=== PATIENT | male | born 1940 | race Caucasian/White ===

== ENCOUNTER 2022-05-09 20:50 | Inpatient (IN) ==
[2022-05-09] MEDS ORDERED: 0.9 % SODIUM CHLORIDE 1,000 ML IV ONE (21:16)
--- NOTE | 2022-05-09 21:30 | Emergency Department Note ---
Weakness HPI General Chief complaint: Weakness Stated complaint: weakness and falling Time Seen by Provider: 05/09/22 21:15 Source: patient and family Mode of arrival: EMS Limitations: no limitations History of Present Illness HPI Narrative: Narrative: Patient presents to the ED with complaints of acute on chronic weakness. Patient main complaint is as right knee hurts. He states that today he fell and his knee fell underneath him and since then he has been having difficulty ambulating. He reports pain is 6/10. He reports decreased appetite and oral intake which is chronic for him. He denies fever, chills, nausea, vomiting abdominal pain, diarrhea, dysuria, hematuria, urinary frequency. States he has been drinking much fluid either. Patient denies any other alleviating or aggravating factors. Patient has home health but not on the weekends. He states he does not normally eat over the weekend. Related Data Home Medications Medication Instructions Recorded Confirmed duloxetine 60 mg capsule,delayed 60 mg PO DAILY 11/30/16 04/15/22 release bisoprolol fumarate 5 mg tablet 2.5 mg PO DAILY 08/19/17 04/15/22 albuterol sulfate 2.5 mg inhalation .Q6-8H PRN 04/13/21 04/15/22 unknown ascorbic acid (vitamin C) 1,000 mg 1 g PO QDAY 04/13/21 04/15/22 tablet baclofen 20 mg tablet See Rx Instructions PO .COMPLEX 04/13/21 04/15/22 calcium carbonate [Calcium 600] 500 mg PO 04/13/21 04/15/22 gabapentin 300 mg capsule 600 mg PO QAM AND QPM 04/13/21 04/15/22 lamotrigine 100 mg tablet 100 mg PO BID 04/13/21 04/15/22 biydnhrgnemo-brysqnbi-jqplvy 1 tab PO QDAY 04/13/21 04/15/22 tablet (Multivitamin 50 Plus) aspirin 325 mg tablet 325 mg PO QDAY 01/20/22 04/15/22 Previous Rx's Medication Instructions Recorded Condom Catheter with Band #30 ea 04/15/22 Allergies Allergy/AdvReac Type Severity Reaction Status Date / Time animal dander Allergy Unknown unknown Verified 05/09/22 21:02 clindamycin Allergy Unknown hives Verified 05/09/22 21:02 pollen extracts Allergy Unknown unknown Verified 05/09/22 21:02 morphine AdvReac Nausea Verified 05/09/22 21:02 Review of Systems ROS ROS Narrative: Narrative: All systems ED: reviewed and negative except as stated. [facility] Narrative Patient History Narrative: Narrative: Medical/Surgical/Family History All Active Problems (Updated 05/10/22 @ 01:17 by uKrtis Dumont DO) Allergic rhinitis (Chronic) BPH (benign prostatic hyperplasia) (Chronic) Erectile dysfunction (Chronic) Nocturia (Chronic) Obstructive sleep apnea (Chronic) Peyronie disease (Chronic) Urinary frequency (Chronic) Weight loss (Chronic) Neck fracture (Chronic) Hernia of abdominal wall (Chronic) Hx of prostate biopsy (Chronic 05/29/15) History of prostate surgery (Chronic) Scalp laceration (Chronic) Urinary tract infection (Chronic) Urge incontinence (Chronic) Abrasion of face without infection (Chronic) Concussion without loss of consciousness (Chronic) Cervical radiculopathy (Chronic) History of spinal cord injury (Chronic ~06/2014) Chronic pain (Chronic) Cellulitis (Chronic) 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) Seizure disorder (Chronic) Acquired lymphedema (Chronic) Bronchitis (Chronic) Induration penis plastica (Chronic) Edema of lower extremity (Chronic) DVT (deep venous thrombosis) (Chronic) Abscess (Chronic) Paraparesis (Chronic) Insomnia (Chronic) Pressure ulcer of sacral region (Chronic) Pressure ulcer of buttock (Chronic) Idiopathic peripheral neuropathy (Chronic) GERD (gastroesophageal reflux disease) (Chronic) Diverticulitis (Chronic) Depressive disorder (Chronic) Hypertension (Chronic) Osteoarthritis (Chronic) Neurogenic bladder (Chronic) Atrial fibrillation (Chronic) Adverse reaction to drug (Chronic) Hypersomnia (Chronic) Epilepsy (Chronic) Renal mass of unknown nature (Chronic) Lumbar radiculopathy (Chronic) On anticoagulant therapy (Chronic) History of pulmonary embolism (Chronic) Acute pain of left shoulder (Acute) Acute pain of left knee (Acute) 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) Renal mass (Acute) Closed tibial fracture (Acute) Acute UTI (Acute) Medical History Abrasion of face without infection Abscess Acquired lymphedema Adverse reaction to drug Allergic rhinitis Atrial fibrillation BPH (benign prostatic hyperplasia) Bronchitis Cellulitis Cervical radiculopathy Chronic pain Clear cell carcinoma of kidney Concussion without loss of consciousness Depressive disorder Diverticulitis DJD of both shoulders DVT (deep venous thrombosis) Edema of lower extremity Epilepsy Erectile dysfunction GERD (gastroesophageal reflux disease) Hernia of abdominal wall History of pulmonary embolism History of spinal cord injury (~06/2014) incomplete cervical Hypersomnia Hypertension Idiopathic peripheral neuropathy 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 level Induration penis plastica Insomnia Lumbar radiculopathy Myelomalacia Neoplasm of uncertain behavior of trachea Neurogenic bladder Nocturia Obstructive sleep apnea On anticoagulant therapy Osteoarthritis Paraparesis Peyronie disease Pressure ulcer of buttock Pressure ulcer of sacral region Renal mass of unknown nature Scalp laceration Seizure disorder Urge incontinence Urinary frequency Urinary tract infection Weight loss Surgical History History of back surgery History of cervical spinal surgery History of discectomy History of hernia repair History of prostate surgery History of surgery 07/03 LESI #1 L2-3 w/o sed 06/28/201711/01 LESI #2 L4-5 w/o sed 10/28/1509/30 LESI #1 L4-5 w/o sed 10/01/1508/31 TF JEANTEH #2 L4-5 w/o sed 09/10/201503/31 TF JEANETH #1 Left L4-5 w/o sed 03/24/2015 History of tonsillectomy History of transurethral resection of prostate Hx of prostate biopsy (05/29/15) Neck fracture Family History Brother Depression Mother , age 94; old age No problems noted. Father , age 34; murdered Kidney stone Social History Smoking Status: Light tobacco smoker Alcohol Intake Frequency: does not drink Substance Use: marijuana Exam Narrative Narrative: Narrative: General Limitations: no limitations General appearance: Present thin and other (Chronically ill-appearing) Head Head: Present atraumatic and normocephalic ENT ENT: Present normal oropharynx and mucous membranes dry Neck Neck: Present full ROM; Absent tenderness Respiratory Respiratory: Present normal lung sounds bilaterally; Absent respiratory distress Cardiovascular Cardiovascular: Present regular rate and normal rhythm Adbominal Abdominal: Present soft; Absent tenderness Extremities Extremities: Present tenderness (Right knee) and normal capillary refill (Right knee) Neurological Neurological: Present alert and oriented X3 Psychiatric Psychiatric: Present normal affect and normal mood Skin Skin: Present warm (WNL) and intact Course Course Course Narrative: Patient was evaluated for weakness and a fall. There was no head trauma. Lab work was unremarkable with exception of leukocytosis which seems to be chronic for the patient. Renal function was intact. Patient was given some IV fluids and a box lunch which he ate some of. X-ray of the right knee obtained with image reviewed myself which is concerning for a right proximal tibial fracture, official read pending. Patient was placed in a knee immobilizer. Patient's UA revealed that he had a UTI which could be the cause of his weakness. He was given some IV Rocephin. He is a full max assist just to get to the bedside commode. At this point patient he would not be a safe discharge home as he lives at home alone with no way to help him. And we have no beds available in the hospital so we will keep patient in the ED and have case management review patient's case in the morning to help with disposition. Reevaluation(s) Reevaluation #1: Patient remains hemodynamically stable. No new complaints at this time. Time: 22:10 Vital Signs Vital signs: Vital Signs Temperature 98.1 F 05/09/22 20:55 Pulse Rate 60 05/09/22 20:55 Respiratory Rate 18 05/09/22 20:55 Blood Pressure 141/92 05/09/22 20:55 Pulse Oximetry (%) 97 05/09/22 20:55 Oxygen Delivery Method 05/09/22 20:55 Temperature 97.5 F 05/10/22 00:27 Pulse Rate 73 05/10/22 01:29 Respiratory Rate 14 05/09/22 23:33 Blood Pressure 159/88 05/09/22 23:33 Pulse Oximetry (%) 97 05/10/22 01:29 Oxygen Delivery Method 05/09/22 20:55 [facility] MDM Narrative Medical decision making narrative: Narrative: Differential Diagnosis Differential Diagnosis: Dehydration, right knee pain Medical Records Medical records reviewed: Yes I reviewed the patient's medical records. Lab Data Lab results reviewed: Yes I reviewed the patient's lab results. Result diagrams: 05/09/22 21:30 05/09/22 21:30 Labs: Lab Results 05/09/22 05/09/22 05/09/22 Range/Units 21:30 21:30 21:36 WBC 14.6 H (4.5-11.0) K/mcL RBC 4.03 L (4.63-6.08) M/mcL Hgb 13.0 L (13.7-17.5) g/dL Hct 38.6 L (40.1-51.0) % POC Hct 37.0 L (41-55) MCV 95.8 (80.0-100.0) fL MCH 32.3 (26.0-34.0) pg MCHC 33.7 (31.0-36.0) g/dL RDW 13.2 (11.5-14.5) % Plt Count 204 (140-440) K/mcL MPV 10.4 (7.4-10.4) fL Immature Gran % (Auto) 0.5 (0.0-0.5) % Neut % (Auto) 62.9 (38.0-78.0) % Lymph % (Auto) 31.4 (15.5-49.0) % Ramsey % (Auto) 3.8 (1.0-12.0) % Eos % (Auto) 1.2 (0.0-7.0) % Baso % (Auto) 0.2 (0.0-2.0) % Lymph # (Auto) 4.57 (1.50-4.80) K/mcL Ramsey # (Auto) 0.56 (0.10-0.90) K/mcL Eos # (Auto) 0.17 (0.00-0.70) K/mcL Baso # (Auto) 0.03 (0.00-0.30) K/mcL Immature Gran # 0.07 H (0.00-0.05) K/mcl Absolute Neutrophils 9.22 H (1.80-8.00) K/mcL POC Sodium 139 (133-145) Sodium 138 (133-145) mmol/L POC Potassium 4.1 (3.3-5.1) Potassium 4.2 (3.3-5.1) mmol/L POC Chloride 104 (96-108) Chloride 102 (96-108) mmol/L Carbon Dioxide 27 (22-30) mmol/L POC Total CO2 29.0 (22-30) Anion Gap 9.0 (8.0-16.0) POC BUN 23 H (6-20) BUN 20 (8-23) mg/dL Creatinine 1.0 (0.7-1.2) mg/dL POC Creatinine 1.1 (0.6-1.2) GFR Calculation 70 Glucose 102 (70-105) mg/dL POC Glucose 103 (70-105) Calcium 9.3 (8.6-10.4) mg/dL POC WB Ioniz Calcium 1.08 L (1.16-1.32) Total Bilirubin 0.6 (0.1-1.0) mg/dL AST 22 (<40) U/L ALT 16 (<40) U/L Alkaline Phosphatase 93 (39-117) U/L Total Protein 5.9 (5.9-8.4) gm/dL Albumin 3.8 (3.2-5.2) gm/dL Globulin 2.1 L (2.2-3.7) gm/dL Albumin/Globulin Ratio 1.8 (1.0-2.3) Urine Color Urine Appearance (Clear) Urine pH (5.0-9.0) Ur Specific [place] (1.000-1.035) Urine Protein (Negative) mg/dL Urine Glucose (UA) (Negative) mg/dL Urine Ketones (Negative) mg/dL Urine Occult Blood (Negative) nae/mcL Urine Nitrate (Negative) Urine Bilirubin (Negative) mg/dL Urine Urobilinogen mg/dL Ur Leukocyte Esterase (Negative) /uL Urine RBC (0-3) /hpf Urine WBC (0-4) /hpf Ur Squamous Epith Cells (0-4) /hpf Urine Bacteria (0) /hpf Urine Mucus (None) /hpf Ur Culture Indicated? 05/10/22 Range/Units 00:25 WBC (4.5-11.0) K/mcL RBC (4.63-6.08) M/mcL Hgb (13.7-17.5) g/dL Hct (40.1-51.0) % POC Hct (41-55) MCV (80.0-100.0) fL MCH (26.0-34.0) pg MCHC (31.0-36.0) g/dL RDW (11.5-14.5) % Plt Count (140-440) K/mcL MPV (7.4-10.4) fL Immature Gran % (Auto) (0.0-0.5) % Neut % (Auto) (38.0-78.0) % Lymph % (Auto) (15.5-49.0) % Ramsey % (Auto) (1.0-12.0) % Eos % (Auto) (0.0-7.0) % Baso % (Auto) (0.0-2.0) % Lymph # (Auto) (1.50-4.80) K/mcL [place] # (Auto) (0.10-0.90) K/mcL Eos # (Auto) (0.00-0.70) K/mcL Baso # (Auto) (0.00-0.30) K/mcL Immature Gran # (0.00-0.05) K/mcl Absolute Neutrophils (1.80-8.00) K/mcL POC Sodium (133-145) Sodium (133-145) mmol/L POC Potassium (3.3-5.1) Potassium (3.3-5.1) mmol/L POC Chloride (96-108) Chloride (96-108) mmol/L Carbon Dioxide (22-30) mmol/L POC Total CO2 (22-30) Anion Gap (8.0-16.0) POC BUN (6-20) BUN (8-23) mg/dL Creatinine (0.7-1.2) mg/dL POC Creatinine (0.6-1.2) GFR Calculation Glucose (70-105) mg/dL POC Glucose (70-105) Calcium (8.6-10.4) mg/dL POC WB Ioniz Calcium (1.16-1.32) Total Bilirubin (0.1-1.0) mg/dL AST (<40) U/L ALT (<40) U/L Alkaline Phosphatase (39-117) U/L Total Protein (5.9-8.4) gm/dL Albumin (3.2-5.2) gm/dL Globulin (2.2-3.7) gm/dL Albumin/Globulin Ratio (1.0-2.3) Urine Color P.yellow Urine Appearance Hazy A (Clear) Urine pH 6.0 (5.0-9.0) Ur Specific [place] 1.020 (1.000-1.035) Urine Protein Negative (Negative) mg/dL Urine Glucose (UA) Negative (Negative) mg/dL Urine Ketones 40(2+) A (Negative) mg/dL Urine Occult Blood Trace A (Negative) nae/mcL Urine Nitrate Positive A (Negative) Urine Bilirubin Negative (Negative) mg/dL Urine Urobilinogen Normal mg/dL Ur Leukocyte Esterase 1+(small) A (Negative) /uL Urine RBC 5 H (0-3) /hpf Urine WBC 67 H (0-4) /hpf Ur Squamous Epith Cells 0 (0-4) /hpf Urine Bacteria Many A (0) /hpf Urine Mucus Few A (None) /hpf Ur Culture Indicated? yes ED POC Tests ED POC Tests: NIMO - Influenza A Negative NIMO - Influenza B Negative NIMO - SARS Antigen Negative Radiology Data Radiology results reviewed: Yes I reviewed the patient's radiology results. Radiology results narrative: X-ray of the right knee obtained with images reviewed myself suspected tibial f racture Core Measures AMI Core Measures Followed: Yes Discharge Plan Patient/Caregiver Discharge Instructions Pt seen by [employer]DER/PA only: No Clinical Impression: Acute UTI Closed tibial fracture Qualifiers: Encounter type: initial encounter Tibia location: proximal Fracture morphology: unspecified fracture morphology Laterality: right Qualified Code(s): S82.101A - Unspecified fracture of upper end of right tibia, initial encounter for closed fracture Activity: non-weight bearing Instructions: Leg Fracture (ED) Activity Restrictions/Additional Instructions: Follow-up with orthopedic surgery within 2 to 3 days Seek medical attention symptoms worsen Patient Disposition: Still a Patient Condition: Good Follow up with: Lucy Giron ARNP [Primary Care Provider] - Angel Palmer MD [Physician] - 05/12/22 (Right tibial fracture) Prescriptions: No Action albuterol sulfate 2.5 mg /3 mL (0.083 %) solution for nebulization 2.5 mg inhalation .Q6-8H PRN (Reason: unknown) calcium carbonate [Calcium 600] 500 mg PO gabapentin 300 mg capsule 600 mg PO QAM AND QPM lamotrigine 100 mg tablet 100 mg PO BID Multivitamin 50 Plus Tablet 1 tab PO QDAY ascorbic acid (vitamin C) 1,000 mg tablet 1 g PO QDAY duloxetine 60 MG capsule,delayed release(DR/EC) 60 mg PO DAILY bisoprolol fumarate 5 MG tablet 2.5 mg PO DAILY baclofen 20 mg tablet See Rx Instructions PO .COMPLEX Rx Instructions: take 1 tab PO QAM; take 2 tabs PO QPM aspirin 325 mg tablet 325 mg PO QDAY (DME) Condom Catheter with Band 29mm See Rx Instructions .Route .MEDSUPPLY Qty: 30 6RF Rx Instructions: As directed
[2022-05-09 21:39] LABS: POC Calcium, Ionized 1.08 (1.16-1.32); POC Creatinine 1.1 (0.6-1.2); POC Potassium 4.1 (3.3-5.1)
[2022-05-09 22:11] LABS: Basophils # (Auto) 0.03 K/mcL (0.00-0.30); Basophils % (Auto) 0.2 % (0.0-2.0); Eosinophils # (Auto) 0.17 K/mcL (0.00-0.70); Eosinophils % (Auto) 1.2 % (0.0-7.0); Hematocrit 38.6 % (40.1-51.0); Lymphocytes # (Auto) 4.57 K/mcL (1.50-4.80); Lymphocytes % (Auto) 31.4 % (15.5-49.0); Mean Cell Volume 95.8 fL (80.0-100.0); Mean Corpuscular HGB Conc 33.7 g/dL (31.0-36.0); Mean Platelet Volume 10.4 fL (7.4-10.4); Monocytes # (Auto) 0.56 K/mcL (0.10-0.90); Monocytes % (Auto) 3.8 % (1.0-12.0); Neutrophils % (Auto) 62.9 % (38.0-78.0); Platelet Count 204 K/mcL (140-440); RBC 4.03 M/mcL (4.63-6.08); Red Cell Distribution Width 13.2 % (11.5-14.5); WBC 14.6 K/mcL (4.5-11.0)
[2022-05-09 22:36] LABS: ALT/SGPT 16 U/L (<40); AST/SGOT 22 U/L (<40); Albumin 3.8 gm/dL (3.2-5.2); Albumin/Globulin Ratio 1.8 (1.0-2.3); Alkaline Phosphatase 93 U/L (39-117); Bilirubin,Total 0.6 mg/dL (0.1-1.0); Blood Urea Nitrogen 20 mg/dL (8-23); Calcium 9.3 mg/dL (8.6-10.4); Carbon Dioxide 27 mmol/L (22-30); Chloride 102 mmol/L (96-108); Globulin 2.1 gm/dL (2.2-3.7); Glomerular Filtration Rate 70; Glucose 102 mg/dL (70-105)
[2022-05-10 01:07] LABS: Appearance,Urine Hazy (Clear); Bacteria,Urine MANY /hpf (0); Bilirubin,Urine Negative (Negative); Color,Urine P.Yellow; Culture Indicated,Urine yes; Glucose,Urine (UA) Negative (Negative); Ketones,Urine 40(2+) mg/dL (Negative); Leukocyte Esterase,Urine 1+(Small) /uL (Negative); Mucus,Urine FEW /hpf; Nitrate,Urine Positive (Negative); Protein,Urine Negative (Negative); Urine Blood Trace ery/mcL (Negative); Urine RBC 5 /hpf (0-3); Urine Squamous Epithelial Cell 0 /hpf (0-4); Urine WBC 67 /hpf (0-4); Urobilinogen,Urine Normal
[2022-05-10] MEDS ORDERED: cefTRIAXone 2 GM in DEXTROSE 5% IN WATER 50 ML IV ONE (01:16)
[2022-05-10] MEDS: 0.9 % SODIUM CHLORIDE 1,000 ML IV SCH ×2 (01:49→18:11)
--- NOTE | 2022-05-10 08:09 | XRay Report ---
HISTORY: Fell, right knee pain and weakness FINDINGS: There is an acute nondepressed obliquely oriented fracture through the medial tibial plateau. There is also a transverse component of the fracture which extends across the proximal metaphyseal region of the tibia. There is another transverse fracture through the neck of the fibula. There is underlying mild osteoarthritis with formation of small spurs. A large joint effusion is present. Calcified plaques are present in the popliteal artery. IMPRESSION: Fractured proximal tibia and fibula Interpreted and Authenticated by: Marlon Rebolledo 05/10/22
--- NOTE | 2022-05-10 08:36 | Internal Med History&Physical ---
HPI History of Present Illness Patient information: Note initiated : 05/10/22 at 8:28 am Service Date, if different from initiated Date: [] Patient: Gee Morton a 81 y/o M admitted on for weakness and falling. Chief Complaint: [] History of present illness: Mr. Morton is a 81 year old M Patient presents ED for 3 days of weakness and falling. Not eating and drinking well. Sounds like he has home health but not on the weekends. Patient fell onto his knee with increased pain. He typically uses a walker or scooter to get around. In the ED patient is found to be febrile and a UTI. Patient does complain of a fever. Patient was also found to have a proximal tibial fracture and placed in a knee immobilizer. Patient is a full max assist to commode. States he has chronic edema in the legs right is typically worse. Review of Systems: Pertinent positives as above. Denies headache//chills/nausea/vomiting/chest or abdominal pain/cough/dyspnea/diarrhea. Remaining 10 point review of system reviewed negative PFSH PFSH All Active Problems (Updated 05/10/22 @ 06:45 by Kurtis Dumont DO) Allergic rhinitis (Chronic) BPH (benign prostatic hyperplasia) (Chronic) Erectile dysfunction (Chronic) Nocturia (Chronic) Obstructive sleep apnea (Chronic) Peyronie disease (Chronic) Urinary frequency (Chronic) Weight loss (Chronic) Neck fracture (Chronic) Hernia of abdominal wall (Chronic) Hx of prostate biopsy (Chronic 05/29/15) History of prostate surgery (Chronic) Scalp laceration (Chronic) Urinary tract infection (Chronic) Urge incontinence (Chronic) Abrasion of face without infection (Chronic) Concussion without loss of consciousness (Chronic) Cervical radiculopathy (Chronic) History of spinal cord injury (Chronic ~06/2014) Chronic pain (Chronic) Cellulitis (Chronic) 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) Seizure disorder (Chronic) Acquired lymphedema (Chronic) Bronchitis (Chronic) Induration penis plastica (Chronic) Edema of lower extremity (Chronic) DVT (deep venous thrombosis) (Chronic) Abscess (Chronic) Paraparesis (Chronic) Insomnia (Chronic) Pressure ulcer of sacral region (Chronic) Pressure ulcer of buttock (Chronic) Idiopathic peripheral neuropathy (Chronic) GERD (gastroesophageal reflux disease) (Chronic) Diverticulitis (Chronic) Depressive disorder (Chronic) Hypertension (Chronic) Osteoarthritis (Chronic) Neurogenic bladder (Chronic) Atrial fibrillation (Chronic) Adverse reaction to drug (Chronic) Hypersomnia (Chronic) Epilepsy (Chronic) Renal mass of unknown nature (Chronic) Lumbar radiculopathy (Chronic) On anticoagulant therapy (Chronic) History of pulmonary embolism (Chronic) Acute pain of left shoulder (Acute) Acute pain of left knee (Acute) 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) Renal mass (Acute) Closed tibial fracture (Acute) Acute UTI (Acute) Unable to care for self (Acute) Generalized weakness (Acute) Medical History Abrasion of face without infection Abscess Acquired lymphedema Adverse reaction to drug Allergic rhinitis Atrial fibrillation BPH (benign prostatic hyperplasia) Bronchitis Cellulitis Cervical radiculopathy Chronic pain Clear cell carcinoma of kidney Concussion without loss of consciousness Depressive disorder Diverticulitis DJD of both shoulders DVT (deep venous thrombosis) Edema of lower extremity Epilepsy Erectile dysfunction GERD (gastroesophageal reflux disease) Hernia of abdominal wall History of pulmonary embolism History of spinal cord injury (~06/2014) incomplete cervical Hypersomnia Hypertension Idiopathic peripheral neuropathy 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 level Induration penis plastica Insomnia Lumbar radiculopathy Myelomalacia Neoplasm of uncertain behavior of trachea Neurogenic bladder Nocturia Obstructive sleep apnea On anticoagulant therapy Osteoarthritis Paraparesis Peyronie disease Pressure ulcer of buttock Pressure ulcer of sacral region Renal mass of unknown nature Scalp laceration Seizure disorder Urge incontinence Urinary frequency Urinary tract infection Weight loss Surgical History History of back surgery History of cervical spinal surgery History of discectomy History of hernia repair History of prostate surgery History of surgery 07/03 LESI #1 L2-3 w/o sed 06/28/201711/01 LESI #2 L4-5 w/o sed 10/28/1509/30 LESI #1 L4-5 w/o sed 10/01/1508/31 TF JEANETH #2 L4-5 w/o sed 09/10/201503/31 TF JEANETH #1 Left L4-5 w/o sed 03/24/2015 History of tonsillectomy History of transurethral resection of prostate Hx of prostate biopsy (05/29/15) Neck fracture Family History Brother Depression Mother , age 94; old age No problems noted. Father , age 34; murdered Kidney stone Social History occupational status: retired smoking status: Current some day smoker smoking status stop date: 06/19/15 alcohol intake frequency: does not drink substance use type: marijuana MEDS/ALLERGIES Home Medications and Allergies Home Medications Medication Instructions Recorded Confirmed Type duloxetine 60 mg capsule,delayed 60 mg PO DAILY 11/30/16 05/10/22 History release bisoprolol fumarate 5 mg tablet 2.5 mg PO DAILY 08/19/17 05/10/22 History albuterol sulfate 2.5 mg inhalation .Q6-8H PRN 04/13/21 05/10/22 History unknown ascorbic acid (vitamin C) 1,000 mg 1 g PO QDAY 04/13/21 05/10/22 History tablet baclofen 20 mg tablet See Rx Instructions PO .COMPLEX 04/13/21 05/10/22 History calcium carbonate [Calcium 600] 500 mg PO 04/13/21 04/15/22 History gabapentin 300 mg capsule 600 mg PO QAM AND QPM 04/13/21 05/10/22 History lamotrigine 100 mg tablet 100 mg PO BID 04/13/21 05/10/22 History trdvmnphbnzn-wzbdftim-xeijwn 1 tab PO QDAY 04/13/21 05/10/22 History tablet (Multivitamin 50 Plus) aspirin 325 mg tablet 325 mg PO QDAY 01/20/22 05/10/22 History Condom Catheter with Band #30 ea 04/15/22 05/10/22 Rx Allergies Allergy/AdvReac Type Severity Reaction Status Date / Time animal dander Allergy Unknown unknown Verified 05/09/22 21:02 clindamycin Allergy Unknown hives Verified 05/09/22 21:02 pollen extracts Allergy Unknown unknown Verified 05/09/22 21:02 morphine AdvReac Nausea Verified 05/09/22 21:02 EXAM Constitutional Vitals: Temp Pulse Resp BP Pulse Ox O2 Del Method 101.8 F H 72 14 125/47 95 05/10/22 06:55 05/10/22 08:02 05/09/22 23:33 05/10/22 08:01 05/10/22 08:02 05/09/22 20:55 Exam: General: Alert, Awake, No acute Distress Eyes/N/T: EOMI, PERRL, dry MM Head/Neck: neck supple, normocephalic atraumatic CV: RRR, No murmurs, normal s1/s2 Pulm: Clear b/l, no wheezing/rhonchi/rales Abd: soft, nontender, +BS x4 Ext: no clubbing/cyanosis, b/l LE edema R>L, Left knee swollen Neuro: Alert, no focal deficits, moves all extremities, CN 2-12 grossly intact, Skin: warm/dry DATA Data Completed and Pending Labs: Labs from last 24 hours 05/10/22 05/09/22 05/09/22 00:25 21:36 21:30 WBC 14.6 H RBC 4.03 L Hgb 13.0 L Hct 38.6 L POC Hct 37.0 L MCV 95.8 MCH 32.3 MCHC 33.7 RDW 13.2 Plt Count 204 MPV 10.4 Immature Gran % (Auto) 0.5 Neut % (Auto) 62.9 Lymph % (Auto) 31.4 Charles % (Auto) 3.8 Eos % (Auto) 1.2 Baso % (Auto) 0.2 Lymph # (Auto) 4.57 Charles # (Auto) 0.56 Eos # (Auto) 0.17 Baso # (Auto) 0.03 Immature Gran # 0.07 H Absolute Neutrophils 9.22 H POC Sodium 139 Sodium POC Potassium 4.1 Potassium POC Chloride 104 Chloride Carbon Dioxide POC Total CO2 29.0 Anion Gap POC BUN 23 H BUN Creatinine POC Creatinine 1.1 GFR Calculation Glucose POC Glucose 103 Calcium POC WB Ioniz Calcium 1.08 L Total Bilirubin AST ALT Alkaline Phosphatase Total Protein Albumin Globulin Albumin/Globulin Ratio Urine Color P.yellow Urine Appearance Hazy A Urine pH 6.0 Ur Specific [place] 1.020 Urine Protein Negative Urine Glucose (UA) Negative Urine Ketones 40(2+) A Urine Occult Blood Trace A Urine Nitrate Positive A Urine Bilirubin Negative Urine Urobilinogen Normal Ur Leukocyte Esterase 1+(small) A Urine RBC 5 H Urine WBC 67 H Ur Squamous Epith Cells 0 Urine Bacteria Many A Urine Mucus Few A Ur Culture Indicated? yes 05/09/22 21:30 WBC RBC Hgb Hct POC Hct MCV MCH MCHC RDW Plt Count MPV Immature Gran % (Auto) Neut % (Auto) Lymph % (Auto) Charles % (Auto) Eos % (Auto) Baso % (Auto) Lymph # (Auto) Charles # (Auto) Eos # (Auto) Baso # (Auto) Immature Gran # Absolute Neutrophils POC Sodium Sodium 138 POC Potassium Potassium 4.2 POC Chloride Chloride 102 Carbon Dioxide 27 POC Total CO2 Anion Gap 9.0 POC BUN BUN 20 Creatinine 1.0 POC Creatinine GFR Calculation 70 Glucose 102 POC Glucose Calcium 9.3 POC WB Ioniz Calcium Total Bilirubin 0.6 AST 22 ALT 16 Alkaline Phosphatase 93 Total Protein 5.9 Albumin 3.8 Globulin 2.1 L Albumin/Globulin Ratio 1.8 Urine Color Urine Appearance Urine pH Ur Specific [place] Urine Protein Urine Glucose (UA) Urine Ketones Urine Occult Blood Urine Nitrate Urine Bilirubin Urine Urobilinogen Ur Leukocyte Esterase Urine RBC Urine WBC Ur Squamous Epith Cells Urine Bacteria Urine Mucus Ur Culture Indicated? A/P Narrative A/P Narrative: A: *Generalized weakness/deconditioning/Falling: *UTI: *Right tibial plateau fracture and through the neck of the fibula: *HTN: *Depression: *Chronic pain & Neuropathy: *Peripheral edema: * P: -Orthopedic consult -Rocephin pending UC -PT/OT -cont home BB -TEDS, elevate leg -ppx: SCD until seen by ortho. DNR Time Spent With Patient Time: Total time spent is greater than 50% in coordination of care (as documented) at patient's floor/unit and/or counseling patient:
[2022-05-10] MEDS ORDERED: POLYETHYLENE GLYCOL 3350 17 GM PACKET PO PRN (08:49)
[2022-05-10] MEDS ORDERED: ONDANSETRON 4 MG/2 ML VIAL IV PRN (08:49)
[2022-05-10] MEDS ORDERED: SENNOSIDES 1 TABLET PO PRN (08:49)
[2022-05-10] MEDS ORDERED: ACETAMINOPHEN 325 MG TABLET PO PRN (08:49)
[2022-05-10] MEDS ORDERED: POTASSIUM CHLORIDE 20 MEQ TABLET PO PRN ×2 (08:49)
[2022-05-10] MEDS ORDERED: MAGNESIUM SULFATE 2 GM/50 ML BAG IV PRN (08:49)
[2022-05-10] MEDS ORDERED: IPRATROPIUM/ALBUTEROL 3 ML AMPUL.NEB NEB PRN (08:49)
[2022-05-10] MEDS ORDERED: POTASSIUM CHLORIDE 40 MEQ in DEXTROSE 5% IN WATER 500 ML IV PRN (08:49)
[2022-05-10] MEDS ORDERED: cefTRIAXone 1 GM in DEXTROSE 5% IN WATER 50 ML IV SCH (09:00)
[2022-05-10] MEDS ORDERED: 0.9 % SODIUM CHLORIDE 1,000 ML IV SCH (09:00)
[2022-05-10] MEDS: DOCUSATE SODIUM 100 MG CAPSULE PO SCH ×2 (12:32→20:10)
[2022-05-10] MEDS: 0.9 % SODIUM CHLORIDE 10 ML SYRINGE IV SCH ×2 (12:33→20:11)
[2022-05-10] MEDS: HYDROcodone/APAP 5/325MG TABLET PO PRN (16:14)
[2022-05-10] MEDS ORDERED: ALBUTEROL SULFATE 2.5 MG/3 ML NEBULIZER INH PRN (16:19)
[2022-05-10] MEDS ORDERED: NEOMYCIN SCH (16:30)
[2022-05-10] MEDS ORDERED: POLYMYXIN B SCH (16:30)
[2022-05-10] MEDS ORDERED: HYDROCORTISONE SCH (16:30)
[2022-05-10] MEDS ORDERED: morphine 4 MG/ML VIAL IV PRN (16:50)
[2022-05-10] MEDS ORDERED: cefTRIAXone 1 GM VIAL IV SCH (17:00)
[2022-05-10] MEDS: PIPERACILLIN SODIUM/TAZOBACTAM 3.375 GM in DEXTROSE 5% IN WATER 50 ML IV SCH (17:56)
--- NOTE | 2022-05-10 19:14 | XRay Report ---
HISTORY: Right ankle injury with pain FINDINGS: There is an acute transverse fracture of the medial malleolus. The bone is slightly rotated in a lateral direction. There is also an obliquely oriented fracture in the lateral malleolus. This bone is also mildly angulated in a lateral direction. Lateral view shows a subtle intra-articular fracture of the posterior malleolus. Patient has a large amount of soft tissue swelling around the ankle and a small joint effusion. Moderate size spur is present along the posterior border of the calcaneus. IMPRESSION: Trimalleolar fracture Interpreted and Authenticated by: Marlon Rebolledo 05/10/22
[2022-05-10] MEDS: GABAPENTIN 300 MG CAPSULE PO SCH (20:10)
[2022-05-10] MEDS: BACLOFEN 10 MG TABLET PO SCH (20:10)
[2022-05-10] MEDS ORDERED: lamoTRIgine 25 MG TABLET PO SCH (21:00)
[2022-05-10] MEDS: DULoxetine 30 MG CAPSULE PO SCH (23:38)
[2022-05-10] MEDS: lamoTRIgine 25 MG TABLET PO SCH (23:40)
[2022-05-11] MEDS: PIPERACILLIN SODIUM/TAZOBACTAM 3.375 GM in DEXTROSE 5% IN WATER 50 ML IV SCH ×4 (00:04→22:19)
[2022-05-11] MEDS: HYDROcodone/APAP 5/325MG TABLET PO PRN (04:58)
[2022-05-11] MEDS: 0.9 % SODIUM CHLORIDE 10 ML SYRINGE IV SCH ×3 (04:58→22:20)
[2022-05-11 06:23] LABS: Basophils # (Auto) 0.04 K/mcL (0.00-0.30); Basophils % (Auto) 0.4 % (0.0-2.0); Eosinophils # (Auto) 0.25 K/mcL (0.00-0.70); Eosinophils % (Auto) 2.5 % (0.0-7.0); Hematocrit 31.9 % (40.1-51.0); Hemoglobin 10.6 g/dL (13.7-17.5); Lymphocytes # (Auto) 3.56 K/mcL (1.50-4.80); Lymphocytes % (Auto) 36.1 % (15.5-49.0); Mean Cell Volume 95.5 fL (80.0-100.0); Mean Corpuscular HGB Conc 33.2 g/dL (31.0-36.0); Mean Platelet Volume 10.3 fL (7.4-10.4); Monocytes % (Auto) 6.1 % (1.0-12.0); Neutrophils % (Auto) 54.6 % (38.0-78.0); Platelet Count 147 K/mcL (140-440); RBC 3.34 M/mcL (4.63-6.08); Red Cell Distribution Width 13.2 % (11.5-14.5); WBC 9.9 K/mcL (4.5-11.0)
[2022-05-11 06:50] LABS: ALT/SGPT 12 U/L (<40); AST/SGOT 16 U/L (<40); Albumin/Globulin Ratio 1.6 (1.0-2.3); Alkaline Phosphatase 67 U/L (39-117); Bilirubin,Total 0.6 mg/dL (0.1-1.0); Blood Urea Nitrogen 13 mg/dL (8-23); Calcium 8.5 mg/dL (8.6-10.4); Carbon Dioxide 25 mmol/L (22-30); Chloride 104 mmol/L (96-108); Globulin 1.9 gm/dL (2.2-3.7); Glomerular Filtration Rate 80; Glucose 110 mg/dL (70-105)
--- NOTE | 2022-05-11 07:18 | Consultation ---
DATE OF CONSULTATION: 05/10/2022 CHIEF COMPLAINT: Right knee pain, right ankle pain. HISTORY OF PRESENT ILLNESS: This is an 81-year-old male, who presented to the emergency department with multiple complaints, which includes weakness and falling over the last few days. He has been basically nonambulatory, utilizes a wheelchair, has ____. He has done some walking at pool. He does complain of right knee pain and right ankle pain. We were consulted by the hospitalist in the emergency department for further evaluation. REVIEW OF SYSTEMS: A 10-point review of systems was reviewed and is negative except as noted. Otherwise, as above. FAMILY HISTORY: Noncontributory. MEDICAL HISTORY: Please see H and P. This is fairly extensive and noncontributory to his musculoskeletal issues. SURGICAL HISTORY: Includes a history of back surgery, history of cervical spine surgery, he has had a hernia repair, prostate surgery history, tonsillectomy, history of transurethral resection of prostate, history of prostate biopsy. SOCIAL HISTORY: The patient is retired and does admit to being a current everyday smoker. Denies any alcohol use. He does use marijuana recreationally. MEDICATIONS: Include duloxetine 60 mg p.o. daily, bisoprolol 2.5 mg p.o. daily, albuterol 2.5 mg inhaler every 6 to 8 hours p.r.n., vitamin C 1 g p.o. q. day, baclofen 20 mg daily, calcium carbonate 500 mg p.o., gabapentin 300 mg p.o. q.a.m. and q.p.m., Lamotrigine 100 mg p.o. b.i.d., multivitamin 1 tab p.o. q. day, aspirin 325 mg p.o. q. day. ALLERGIES: INCLUDE ANIMAL DANDER; CLINDAMYCIN, WHICH GIVES HIM HIVES; POLLEN EXTRACTS; MORPHINE WHICH CAUSES NAUSEA. PHYSICAL EXAMINATION: VITAL SIGNS: Blood pressure 125/48, pulse 72, respirations 14, pulse ox 95% on room air, temperature 101.8 degrees Fahrenheit. GENERAL: The patient is alert and oriented. He is currently awake without acute distress. ENT: Pupils are equal, round, and reactive to light and accommodation. ENT is otherwise unremarkable. HEAD/NECK: Head is normocephalic and atraumatic. Neck is supple without any lymphadenopathy. CARDIOVASCULAR: Heart is regular rate and rhythm without murmurs. PULMONARY: Lungs are clear to auscultation bilaterally without any wheezes, rhonchi, or rales. EXTREMITIES: Right knee inspection reveals ecchymosis or swelling diffusely over the knee without any obvious deformity. The passive and active range of motion of the knee is limited to pain. There is tenderness to palpation over the proximal tibia and fibula. Right lower extremity is neurovascularly intact. The right ankle inspection reveals diffuse pitting edema throughout the ankle. He does have tenderness to palpation over the medial and lateral malleolus without any gross deformity on inspection. Passive and active range of motion of the ankle is limited due to swelling. The right lower extremity is neurovascularly intact. DIAGNOSTIC DATA: Imaging and radiographs of the right knee reveals an oblique nondisplaced and nonangulated tibial plateau fracture, which does extend transversally over the right proximal tibia. There is also transverse fracture of the proximal aspect of the right fibula, which is also nondisplaced and nonangulated. ASSESSMENT: Right nondisplaced and nonangulated oblique medial tibial plateau fracture of the right knee and also a right proximal fibular fracture of the right knee which is nondisplaced and nonangulated and transversally oriented. Also, right ankle pain. PLAN: As radiograph show, the patient does have a nondisplaced, nonangulated right oblique medial tibial plateau fracture of the right knee and also an associated transverse proximal fibular fracture. These fractures will likely be managed nonoperatively. I would like to see the patient in the clinic within the next week. He will be nonweightbearing and will wear his knee immobilizer at all times. I will also obtain radiographs of the right ankle to rule out fractures. He does have tenderness and swelling over the ankle. The patient agrees with this plan and his questions were addressed. He will follow up with any questions or concerns. MAYCO:[email or web address] Job ID: [id number] Doc ID: [id number] Kunal Archibald PA-C
[2022-05-11] MEDS ORDERED: lamoTRIgine 100 MG TABLET PO SCH (09:00)
[2022-05-11] MEDS ORDERED: lamoTRIgine 25 MG TABLET PO SCH (09:00)
[2022-05-11] MEDS ORDERED: DULoxetine 30 MG CAPSULE PO SCH (09:00)
[2022-05-11] MEDS ORDERED: FUROSEMIDE 20 MG TABLET PO SCH (09:00)
[2022-05-11] MEDS ORDERED: ASPIRIN 325 MG ENTERIC COATED TABLET PO SCH (09:00)
[2022-05-11] MEDS ORDERED: LIDOCAINE 5% TOPICAL SCH (09:00)
[2022-05-11] MEDS: CALCIUM CARBONATE 500 MG TAB.CHEW PO SCH (09:06)
[2022-05-11] MEDS: BISOPROLOL 5 MG TABLET PO SCH (09:06)
[2022-05-11] MEDS: MULTIVIT,THER IRON,CA,FA & MIN 1 TABLET PO SCH (09:06)
[2022-05-11] MEDS: DOCUSATE SODIUM 100 MG CAPSULE PO SCH ×2 (09:06→22:17)
[2022-05-11] MEDS: VITAMIN D3 10 MCG TABLET PO SCH (09:07)
[2022-05-11] MEDS: ASCORBIC ACID 500 MG TABLET PO SCH (09:07)
[2022-05-11] MEDS: GABAPENTIN 300 MG CAPSULE PO SCH ×2 (09:07→22:18)
[2022-05-11] MEDS: BACLOFEN 10 MG TABLET PO SCH ×2 (09:07→22:18)
--- NOTE | 2022-05-11 12:21 | Internal Med Progress Note ---
SUBJECTIVE Subjective Patient information: Note initiated : 05/11/22 at 12:11 pm Service Date, if different from initiated Date: [] Patient: Gee Morton 81 y/o M admitted on 05/10/22 for weakness and falling. Chief Complaint: [] Interval history: Mr. Morton is a 81 year old M Patient presents ED for 3 days of weakness and falling. Not eating and drinking well. Sounds like he has home health but not on the weekends. Patient fell onto his knee with increased pain. He typically uses a walker or scooter to get around. In the ED patient is found to be febrile and a UTI. Patient does complain of a fever. Patient was also found to have a proximal tibial fracture and placed in a knee immobilizer. Patient is a full max assist to commode. States he has chronic edema in the legs right is typically worse. 05/11: Low-grade fever with T-max 37.9 overnight. Urine culture growing gram-negative bacillus. Blood culture no growth today. Orthopedic surgeons saw the patient and decided against surgery. Instead, recommend soft cast and 6 to 8 weeks nonweightbearing. Continue Zosyn while waiting for definitive culture results for urinary tract infections. Continue symptoms management for right leg fracture. Pending physical therapy Occupational Therapy evaluation and treatments for placement pending. Patient is complaining of mild right lower extremity pain at rest but becomes 9 out of 10 sharp constant pain whenever he tried to move. Constitutional Vitals: Vital Signs Temp Pulse Resp BP Pulse Ox O2 Del Method 37.3 C H 80 20 108/61 95 05/11/22 08:00 05/11/22 08:00 05/11/22 08:00 05/11/22 08:00 05/11/22 08:00 05/11/22 08:00 Period Temp Pulse Resp BP Sys/Salazar Pulse Ox O2 Del Method O2 Flow Rate Last 24 Hr 37.1 C-37.9 C 80-91 12-20 99-134/56-66 92-97 Room Air-Room Air Intake and Output 05/10/22 05/11/22 05/11/22 21:59 05:59 13:59 Intake Total 530 250 590 Output Total 378 300 1 Balance 152 -50 589 Weight 75.16 kg Intake & Output: Intake & Output 05/10/22 05/11/22 05/11/22 21:59 05:59 13:59 Intake Total 530 250 590 Output Total 378 300 1 Balance 152 -50 589 Weight 75.16 kg Intake: IV 50 50 Zosyn 3.375 gm In Dextrose 5% 50 50 in Water 50 ml @ 100 mls/hr IV Q8H [facility] Rx#:[id number] Oral 480 200 590 Output: Void Amount 375 300 # of times incontinent of urine 3 1 Other: Meal Lunch Breakfast Percent of Meal Consumed 100% 50% Feeding Ability Assist with Tray Set Up Assist with Tray Set Up Urine Appearance Clear Clear Urine Color Dark Yellow Dark Yellow Urine Odor Normal # Voids 1 1 General appearance: average body habitus, cooperative and no acute distress Head Head exam: Present atraumatic and normal inspection Eye Eye exam: Present normal appearance ENT ENT exam: Present mucous membranes moist, normal exam and normal external ear exam Neck Neck exam: Present normal inspection Respiratory Respiratory exam: Present normal respiratory exam Cardiovascular Cardiovascular exam: Present normal rate and rhythm GI/Abdominal GI/Abdominal exam: Present normal bowel sounds Extremities Exam Extremities exam: Absent full ROM or normal inspection Additional comments: Right lower extremity in soft cast with tenderness to palpation Back Exam Back exam: Present normal inspection Neurological Exam Neurological exam: Present alert and oriented X3 Skin Skin exam: Present intact and warm OBJ DATA Labs CBC & Chem 7: 05/11/22 05:14 05/11/22 05:14 Labs: Abnormal Lab Results 05/11/22 05/11/22 05/10/22 05:14 05:14 17:05 WBC RBC 3.34 L Hgb 10.6 L Hct 31.9 L POC Hct Immature Gran # Absolute Neutrophils POC BUN Glucose 110 H Calcium 8.5 L POC WB Ioniz Calcium Total Protein 4.9 L Albumin 3.0 L Globulin 1.9 L Procalcitonin 0.14 H Urine Appearance Urine Ketones Urine Occult Blood Urine Nitrate Ur Leukocyte Esterase Urine RBC Urine WBC Urine Bacteria Urine Mucus 05/10/22 05/09/22 05/09/22 00:25 21:36 21:30 WBC 14.6 H RBC 4.03 L Hgb 13.0 L Hct 38.6 L POC Hct 37.0 L Immature Gran # 0.07 H Absolute Neutrophils 9.22 H POC BUN 23 H Glucose Calcium POC WB Ioniz Calcium 1.08 L Total Protein Albumin Globulin Procalcitonin Urine Appearance Hazy A Urine Ketones 40(2+) A Urine Occult Blood Trace A Urine Nitrate Positive A Ur Leukocyte Esterase 1+(small) A Urine RBC 5 H Urine WBC 67 H Urine Bacteria Many A Urine Mucus Few A 05/09/22 21:30 WBC RBC Hgb Hct POC Hct Immature Gran # Absolute Neutrophils POC BUN Glucose Calcium POC WB Ioniz Calcium Total Protein Albumin Globulin 2.1 L Procalcitonin Urine Appearance Urine Ketones Urine Occult Blood Urine Nitrate Ur Leukocyte Esterase Urine RBC Urine WBC Urine Bacteria Urine Mucus Meds: Medications Acetaminophen (Acetaminophen 325 Mg Tablet) 650 mg PO Q6HP PRN; Protocol PRN Reason: Per Pain Protocol/Fever > 101 Last Admin: 05/11/22 04:58 Dose: 650 mg Hydrocodone Bitart/Acetaminophen (Hydrocodone/Apap 5/325mg Tablet) 1 tab PO Q4HP PRN PRN Reason: PAIN LEVEL 3-6 Last Admin: 05/11/22 04:58 Dose: 1 tab Albuterol Sulfate (Albuterol Sulfate 2.5 Mg/3 Ml Nebulizer) 2.5 mg INH Q6-8HP PRN PRN Reason: Shortness Of Breath Albuterol/Ipratropium (Ipratropium/Albuterol 3 Ml Ampul.Neb) 3 ml NEB Q4HP PRN PRN Reason: Shortness Of Breath Ascorbic Acid (Ascorbic Acid 500 Mg Tablet) 1,000 mg PO DAILY [facility] Last Admin: 05/11/22 09:07 Dose: 1,000 mg Baclofen (Baclofen 10 Mg Tablet) 40 mg PO BID [facility] Last Admin: 05/11/22 09:07 Dose: 40 mg Bisoprolol Fumarate (Bisoprolol 5 Mg Tablet) 2.5 mg PO DAILY [facility] Last Admin: 05/11/22 09:06 Dose: 2.5 mg Calcium Carbonate/Glycine (Calcium Carbonate 500 Mg Tab.Chew) 500 mg PO DAILY [facility] Last Admin: 05/11/22 09:06 Dose: 500 mg Docusate Sodium (Docusate Sodium 100 Mg Capsule) 100 mg PO BID [facility] Last Admin: 05/11/22 09:06 Dose: 100 mg Duloxetine HCl (Duloxetine 30 Mg Capsule) 60 mg PO [facility] Last Admin: 05/10/22 23:38 Dose: 60 mg Gabapentin (Gabapentin 300 Mg Capsule) 600 mg PO BID [facility] Last Admin: 05/11/22 09:07 Dose: 600 mg Potassium Chloride 40 meq/ (Dextrose) 520 mls @ 130 mls/hr IV UD PRN PRN Reason: Potassium < 3 Magnesium Sulfate (Magnesium Sulfate) 2 gm in 50 mls @ 50 mls/hr IV UD PRN PRN Reason: Magnesium </= 1.6 Piperacillin Sod/Tazobactam (Sod 3.375 gm/ Dextrose) 50 mls @ 100 mls/hr IV Q8H [facility]; Protocol Last Admin: 05/11/22 04:57 Dose: 100 mls/hr Iron Carb/Multivit/[place]/Folic Acid (Multivit,Ther Iron,Ca,Fa & Min 1 Tablet) 1 tab PO DAILY [facility] Last Admin: 05/11/22 09:06 Dose: 1 tab Lamotrigine (Lamotrigine 25 Mg Tablet) 125 mg PO HS [facility] Last Admin: 05/10/22 23:40 Dose: 125 mg Ondansetron HCl (Ondansetron 4 Mg/2 Ml Vial) 4 mg IV Q4HP PRN PRN Reason: Nausea And Vomiting Last Admin: 05/11/22 04:58 Dose: 4 mg Polyethylene Glycol (Polyethylene Glycol 3350 17 Gm Packet) 17 gm PO DAILYP PRN PRN Reason: Constipation Potassium Chloride (Potassium Chloride 20 Meq Tablet) 40 meq PO UD PRN PRN Reason: Potssium is 3-3.5 Potassium Chloride (Potassium Chloride 20 Meq Tablet) 40 meq PO UD PRN PRN Reason: Potassium < 3 Senna (Sennosides 1 Tablet) 2 tab PO DAILYP PRN PRN Reason: Constipation Sodium Chloride (0.9 % Sodium Chloride 10 Ml Syringe) 10 ml IV Q8 [facility] Last Admin: 05/11/22 04:58 Dose: Not Given Vitamin D (Vitamin D3 10 Mcg Tablet) 10 mcg PO DAILY [facility] Last Admin: 05/11/22 09:07 Dose: 10 mcg A/P Assessment and plan (1) Fracture of right tibia and fibula: Status: Acute (2) Acute UTI: Status: Acute (3) Essential hypertension: Status: Acute (4) Depression: Status: Acute Narrative A/P Narrative: Assessment and Plans: 1. Right tibial fibular fracture: Inpatient med surg Orthopedic surgeon recs. AGAINST surgery, instead recs. 6-8 week non weight bearing status Physical therapy Occupational therapy Narcotics PRN pain management 2. Depression: Lamotrigine Duloxetine 3. UTI: Zosyn Blood culture no growth to date Urine culture gram negative bacillus 4. Essential HTN: Normotensive Continue Bisoprolol GI ppx: not currently indicated DVT ppx: Lovenox Code status: DNR Prognosis: guarded Disposition: inpatient med surg; PT OT Time Spent With Patient Time: Total time spent is greater than 50% in coordination of care (as documented) at patient's floor/unit and/or counseling patient: Total time spent with greater than 50% in coordination of care (as documented) at patient's floor/unit and/or counseling patient:: 35 - 50 minutes
[2022-05-11] MEDS: DULoxetine 30 MG CAPSULE PO SCH (22:19)
[2022-05-11] MEDS: lamoTRIgine 25 MG TABLET PO SCH (22:19)
[2022-05-12] MEDS: METHOCARBAMOL 750 MG TABLET PO PRN ×4 (00:33→22:01)
[2022-05-12] MEDS ORDERED: METHOCARBAMOL 750 MG TABLET PO ONE (00:37)
[2022-05-12] MEDS: PIPERACILLIN SODIUM/TAZOBACTAM 3.375 GM in DEXTROSE 5% IN WATER 50 ML IV SCH ×3 (05:42→22:02)
[2022-05-12] MEDS: 0.9 % SODIUM CHLORIDE 10 ML SYRINGE IV SCH ×3 (05:42→22:02)
[2022-05-12 06:14] LABS: Basophils # (Auto) 0.03 K/mcL (0.00-0.30); Basophils % (Auto) 0.3 % (0.0-2.0); Eosinophils # (Auto) 0.41 K/mcL (0.00-0.70); Eosinophils % (Auto) 3.8 % (0.0-7.0); Hematocrit 31.7 % (40.1-51.0); Hemoglobin 10.5 g/dL (13.7-17.5); Lymphocytes % (Auto) 35.6 % (15.5-49.0); Mean Cell Volume 95.8 fL (80.0-100.0); Mean Corpuscular HGB Conc 33.1 g/dL (31.0-36.0); Mean Platelet Volume 10.3 fL (7.4-10.4); Monocytes # (Auto) 0.63 K/mcL (0.10-0.90); Monocytes % (Auto) 5.9 % (1.0-12.0); Platelet Count 152 K/mcL (140-440); RBC 3.31 M/mcL (4.63-6.08); WBC 10.7 K/mcL (4.5-11.0)
[2022-05-12 06:39] LABS: ALT/SGPT 12 U/L (<40); AST/SGOT 19 U/L (<40); Albumin 2.7 gm/dL (3.2-5.2); Albumin/Globulin Ratio 1.1 (1.0-2.3); Alkaline Phosphatase 70 U/L (39-117); Bilirubin,Total 0.5 mg/dL (0.1-1.0); Blood Urea Nitrogen 10 mg/dL (8-23); Calcium 8.4 mg/dL (8.6-10.4); Carbon Dioxide 26 mmol/L (22-30); Chloride 101 mmol/L (96-108); Globulin 2.4 gm/dL (2.2-3.7); Glomerular Filtration Rate 84; Glucose 104 mg/dL (70-105)
[2022-05-12] MEDS: ENOXAPARIN 40 MG/0.4 ML SYRINGE SQ SCH (08:57)
[2022-05-12] MEDS: CALCIUM CARBONATE 500 MG TAB.CHEW PO SCH (08:58)
[2022-05-12] MEDS: HYDROcodone/APAP 5/325MG TABLET PO PRN ×3 (08:58→22:57)
[2022-05-12] MEDS: GABAPENTIN 300 MG CAPSULE PO SCH ×2 (08:58→22:01)
[2022-05-12] MEDS: BACLOFEN 10 MG TABLET PO SCH ×2 (08:58→22:02)
[2022-05-12] MEDS: ASCORBIC ACID 500 MG TABLET PO SCH (08:59)
[2022-05-12] MEDS: BISOPROLOL 5 MG TABLET PO SCH (08:59)
[2022-05-12] MEDS: MULTIVIT,THER IRON,CA,FA & MIN 1 TABLET PO SCH (08:59)
[2022-05-12] MEDS: DOCUSATE SODIUM 100 MG CAPSULE PO SCH ×2 (08:59→22:01)
[2022-05-12] MEDS: VITAMIN D3 10 MCG TABLET PO SCH (08:59)
--- NOTE | 2022-05-12 11:55 | Internal Med Progress Note ---
SUBJECTIVE Subjective Patient information: Note initiated : 05/12/22 at 11:50 am Service Date, if different from initiated Date: [] Patient: Gee Morton 81 y/o M admitted on 05/10/22 for weakness and falling. Chief Complaint: [] Interval history: Mr. Morton is a 81 year old M Patient presents ED for 3 days of weakness and falling. Not eating and drinking well. Sounds like he has home health but not on the weekends. Patient fell onto his knee with increased pain. He typically uses a walker or scooter to get around. In the ED patient is found to be febrile and a UTI. Patient does complain of a fever. Patient was also found to have a proximal tibial fracture and placed in a knee immobilizer. Patient is a full max assist to commode. States he has chronic edema in the legs right is typically worse. 05/11: Low-grade fever with T-max 37.9 overnight. Urine culture growing gram-negative bacillus. Blood culture no growth today. Orthopedic surgeons saw the patient and decided against surgery. Instead, recommend soft cast and 6 to 8 weeks nonweightbearing. Continue Zosyn while waiting for definitive culture results for urinary tract infections. Continue symptoms management for right leg fracture. Pending physical therapy Occupational Therapy evaluation and treatments for placement pending. Patient is complaining of mild right lower extremity pain at rest but becomes 9 out of 10 sharp constant pain whenever he tried to move. 05/12: Low-grade fever T-max 37.7 overnight. Urine culture growing gram-negative bacillus. Blood culture no growth today. He is complaining of fairly mild right knee pain at rest which gets exacerbated if he is try to move his right lower extremities. He also is committing of constipations with last bowel movement a few days ago. He denies any urinary symptoms such as dysuria. De nies any fever or chills. Continue soft cast in 6 to 8 weeks nonweightbearing status for his right tibial fibular fractures. Continue Zosyn while waiting for definitive culture results for urinary tract infections. Continue laxative and stool softener as needed to promote a bowel movement. Pending physical therapy Occupational Therapy evaluation and treatments for placement pending. Constitutional Vitals: Vital Signs Temp Pulse Resp BP Pulse Ox O2 Del Method 37.7 C H 81 16 130/77 95 05/12/22 06:59 05/12/22 06:59 05/12/22 06:59 05/12/22 06:59 05/12/22 06:59 05/12/22 06:59 Period Temp Pulse Resp BP Sys/Salazar Pulse Ox O2 Del Method O2 Flow Rate Last 24 Hr 36.7 C-37.7 C 66-81 16-20 104-135/55-77 94-97 Room Air-Room Air Intake and Output 05/11/22 05/12/22 05/12/22 21:59 05:59 13:59 Intake Total 790 580 50 Output Total 3 4 Balance 787 576 50 Weight 75.841 kg Intake & Output: Intake & Output 05/11/22 05/12/22 05/12/22 21:59 05:59 13:59 Intake Total 790 580 50 Output Total 3 4 Balance 787 576 50 Weight 75.841 kg Intake: IV 50 50 50 Zosyn 3.375 gm In Dextrose 5% 50 50 50 in Water 50 ml @ 100 mls/hr IV Q8H [facility] Rx#:[id number] Oral 740 530 Output: # of times incontinent of urine 3 4 Other: Meal Dinner Yogurt Percent of Meal Consumed 50% 100% Feeding Ability Independent Independent Head Head exam: Present atraumatic and normal inspection Eye Eye exam: Present normal appearance ENT ENT exam: Present mucous membranes moist, normal exam and normal external ear exam Neck Neck exam: Present normal inspection Respiratory Respiratory exam: Present normal respiratory exam Cardiovascular Cardiovascular exam: Present normal rate and rhythm GI/Abdominal GI/Abdominal exam: Present normal bowel sounds Extremities Exam Extremities exam: Absent full ROM or normal inspection Additional comments: Soft cast around right knee Back Exam Back exam: Present normal inspection Neurological Exam Neurological exam: Present alert and oriented X3 Skin Skin exam: Present intact and warm OBJ DATA Labs CBC & Chem 7: 05/12/22 05:13 05/12/22 05:13 Labs: Abnormal Lab Results 05/12/22 05/12/22 05/11/22 05:13 05:13 05:14 WBC RBC 3.31 L Hgb 10.5 L Hct 31.7 L POC Hct Immature Gran # Absolute Neutrophils POC BUN Glucose 110 H Calcium 8.4 L 8.5 L POC WB Ioniz Calcium Total Protein 5.1 L 4.9 L Albumin 2.7 L 3.0 L Globulin 1.9 L Procalcitonin Urine Appearance Urine Ketones Urine Occult Blood Urine Nitrate Ur Leukocyte Esterase Urine RBC Urine WBC Urine Bacteria Urine Mucus 05/11/22 05/10/22 05/10/22 05:14 17:05 00:25 WBC RBC 3.34 L Hgb 10.6 L Hct 31.9 L POC Hct Immature Gran # Absolute Neutrophils POC BUN Glucose Calcium POC WB Ioniz Calcium Total Protein Albumin Globulin Procalcitonin 0.14 H Urine Appearance Hazy A Urine Ketones 40(2+) A Urine Occult Blood Trace A Urine Nitrate Positive A Ur Leukocyte Esterase 1+(small) A Urine RBC 5 H Urine WBC 67 H Urine Bacteria Many A Urine Mucus Few A 05/09/22 05/09/22 05/09/22 21:36 21:30 21:30 WBC 14.6 H RBC 4.03 L Hgb 13.0 L Hct 38.6 L POC Hct 37.0 L Immature Gran # 0.07 H Absolute Neutrophils 9.22 H POC BUN 23 H Glucose Calcium POC WB Ioniz Calcium 1.08 L Total Protein Albumin Globulin 2.1 L Procalcitonin Urine Appearance Urine Ketones Urine Occult Blood Urine Nitrate Ur Leukocyte Esterase Urine RBC Urine WBC Urine Bacteria Urine Mucus Meds: Medications Acetaminophen (Acetaminophen 325 Mg Tablet) 650 mg PO Q6HP PRN; Protocol PRN Reason: Per Pain Protocol/Fever > 101 Last Admin: 05/11/22 04:58 Dose: 650 mg Hydrocodone Bitart/Acetaminophen (Hydrocodone/Apap 5/325mg Tablet) 1 tab PO Q4HP PRN PRN Reason: PAIN LEVEL 3-6 Last Admin: 05/12/22 08:58 Dose: 1 tab Albuterol Sulfate (Albuterol Sulfate 2.5 Mg/3 Ml Nebulizer) 2.5 mg INH Q6-8HP PRN PRN Reason: Shortness Of Breath Albuterol/Ipratropium (Ipratropium/Albuterol 3 Ml Ampul.Neb) 3 ml NEB Q4HP PRN PRN Reason: Shortness Of Breath Ascorbic Acid (Ascorbic Acid 500 Mg Tablet) 1,000 mg PO DAILY [facility] Last Admin: 05/12/22 08:59 Dose: 1,000 mg Baclofen (Baclofen 10 Mg Tablet) 40 mg PO BID [facility] Last Admin: 05/12/22 08:58 Dose: 40 mg Bisoprolol Fumarate (Bisoprolol 5 Mg Tablet) 2.5 mg PO DAILY [facility] Last Admin: 05/12/22 08:59 Dose: 2.5 mg Calcium Carbonate/Glycine (Calcium Carbonate 500 Mg Tab.Chew) 500 mg PO DAILY [facility] Last Admin: 05/12/22 08:58 Dose: 500 mg Docusate Sodium (Docusate Sodium 100 Mg Capsule) 100 mg PO BID [facility] Last Admin: 05/12/22 08:59 Dose: 100 mg Duloxetine HCl (Duloxetine 30 Mg Capsule) 60 mg PO [facility] Last Admin: 05/11/22 22:19 Dose: 60 mg Enoxaparin Sodium (Enoxaparin 40 Mg/0.4 Ml Syringe) 40 mg SQ DAILY [facility] Last Admin: 05/12/22 08:57 Dose: 40 mg Gabapentin (Gabapentin 300 Mg Capsule) 600 mg PO BID [facility] Last Admin: 05/12/22 08:58 Dose: 600 mg Potassium Chloride 40 meq/ (Dextrose) 520 mls @ 130 mls/hr IV UD PRN PRN Reason: Potassium < 3 Magnesium Sulfate (Magnesium Sulfate) 2 gm in 50 mls @ 50 mls/hr IV UD PRN PRN Reason: Magnesium </= 1.6 Piperacillin Sod/Tazobactam (Sod 3.375 gm/ Dextrose) 50 mls @ 100 mls/hr IV Q8H [facility]; Protocol Last Infusion: 05/12/22 06:15 Dose: Infused Iron Carb/Multivit/[place]/Folic Acid (Multivit,Ther Iron,Ca,Fa & Min 1 Tablet) 1 tab PO DAILY [facility] Last Admin: 05/12/22 08:59 Dose: 1 tab Lamotrigine (Lamotrigine 25 Mg Tablet) 125 mg PO [facility] Last Admin: 05/11/22 22:19 Dose: 125 mg Methocarbamol (Methocarbamol 750 Mg Tablet) 750 mg PO Q6HP PRN PRN Reason: Muscle Spasm Last Admin: 05/12/22 08:58 Dose: 750 mg Ondansetron HCl (Ondansetron 4 Mg/2 Ml Vial) 4 mg IV Q4HP PRN PRN Reason: Nausea And Vomiting Last Admin: 05/11/22 04:58 Dose: 4 mg Polyethylene Glycol (Polyethylene Glycol 3350 17 Gm Packet) 17 gm PO DAILYP PRN PRN Reason: Constipation Potassium Chloride (Potassium Chloride 20 Meq Tablet) 40 meq PO UD PRN PRN Reason: Potssium is 3-3.5 Potassium Chloride (Potassium Chloride 20 Meq Tablet) 40 meq PO UD PRN PRN Reason: Potassium < 3 Senna (Sennosides 1 Tablet) 2 tab PO DAILYP PRN PRN Reason: Constipation Sodium Chloride (0.9 % Sodium Chloride 10 Ml Syringe) 10 ml IV Q8 [facility] Last Admin: 05/12/22 05:42 Dose: 10 ml Vitamin D (Vitamin D3 10 Mcg Tablet) 10 mcg PO DAILY [facility] Last Admin: 05/12/22 08:59 Dose: 10 mcg A/P Assessment and plan (1) Fracture of right tibia and fibula: Status: Acute (2) Acute UTI: Status: Acute (3) Essential hypertension: Status: Acute (4) Depression: Status: Acute Narrative A/P Narrative: Assessment and Plans: 1. Right tibial fibular fracture: Inpatient med surg Orthopedic surgeon recs. AGAINST surgery, instead recs. 6-8 week non weight bearing status Physical therapy Occupational therapy Narcotics PRN pain management Baclofen and Robaxin PRN muscle spasm 2. Depression: Lamotrigine Duloxetine 3. UTI: Zosyn Blood culture no growth to date Urine culture gram negative bacillus 4. Essential HTN: Normotensive Continue Bisoprolol GI ppx: not currently indicated DVT ppx: Lovenox Code status: DNR Prognosis: guarded Disposition: inpatient med surg; PT OT Time Spent With Patient Time: Total time spent is greater than 50% in coordination of care (as documented) at patient's floor/unit and/or counseling patient: Total time spent with greater than 50% in coordination of care (as documented) at patient's floor/unit and/or counseling patient:: 35 - 50 minutes
[2022-05-12] MEDS: lamoTRIgine 25 MG TABLET PO SCH (22:01)
[2022-05-12] MEDS: DULoxetine 30 MG CAPSULE PO SCH (22:02)
[2022-05-13] MEDS: METHOCARBAMOL 750 MG TABLET PO PRN ×2 (03:46→09:32)
[2022-05-13] MEDS: HYDROcodone/APAP 5/325MG TABLET PO PRN ×2 (03:47→09:33)
[2022-05-13] MEDS: PIPERACILLIN SODIUM/TAZOBACTAM 3.375 GM in DEXTROSE 5% IN WATER 50 ML IV SCH (05:17)
[2022-05-13] MEDS: 0.9 % SODIUM CHLORIDE 10 ML SYRINGE IV SCH (05:17)
[2022-05-13 06:48] LABS: Basophils # (Auto) 0.04 K/mcL (0.00-0.30); Basophils % (Auto) 0.4 % (0.0-2.0); Eosinophils # (Auto) 0.36 K/mcL (0.00-0.70); Eosinophils % (Auto) 3.5 % (0.0-7.0); Hematocrit 32.1 % (40.1-51.0); Hemoglobin 10.6 g/dL (13.7-17.5); Lymphocytes # (Auto) 3.02 K/mcL (1.50-4.80); Mean Cell Volume 95.8 fL (80.0-100.0); Mean Platelet Volume 10.3 fL (7.4-10.4); Monocytes # (Auto) 0.48 K/mcL (0.10-0.90); Monocytes % (Auto) 4.6 % (1.0-12.0); Platelet Count 176 K/mcL (140-440); RBC 3.35 M/mcL (4.63-6.08); Red Cell Distribution Width 12.8 % (11.5-14.5); WBC 10.4 K/mcL (4.5-11.0)
[2022-05-13 07:12] LABS: ALT/SGPT 12 U/L (<40); AST/SGOT 16 U/L (<40); Albumin 2.9 gm/dL (3.2-5.2); Albumin/Globulin Ratio 1.2 (1.0-2.3); Alkaline Phosphatase 69 U/L (39-117); Bilirubin,Total 0.5 mg/dL (0.1-1.0); Blood Urea Nitrogen 10 mg/dL (8-23); Calcium 8.6 mg/dL (8.6-10.4); Carbon Dioxide 27 mmol/L (22-30); Chloride 99 mmol/L (96-108); Globulin 2.4 gm/dL (2.2-3.7); Glomerular Filtration Rate 80; Glucose 142 mg/dL (70-105)
--- NOTE | 2022-05-13 09:12 | Discharge Summary ---
Discharge Provider Provider IMPORTANT FOLLOW-UP INFORMATION FOR PCP: Patient information: Note initiated : 05/13/22 at 9:10 am Service Date, if different from initiated Date: [] Patient: Gee Morton 81 y/o M admitted on 05/10/22 for weakness and falling. Chief Complaint: [] Date of admission: 05/10/22 09:00 Discharge date: 05/13/22 Primary care physician: MATA Gilliam Attending physician on admission: Jeffery Jeffers Consults: 05/10/22 Consult to Physician [CONS] Stat Comment: Consulting Provider: [place] Reason For Exam: Physician to Consult Consult to Physician [CONS] Stat Comment: Consulting Provider: Jeffery Jeffers Reason For Exam: Physician to Consult Attending physician on discharge: Chi Kendy Pui COURSE Hospital Course Hospital course: Mr. Morton is a 81 year old M Patient presents ED for 3 days of weakness and falling. Not eating and drinking well. Sounds like he has home health but not on the weekends. Patient fell onto his knee with increased pain. He typically uses a walker or scooter to get around. In the ED patient is found to be febrile and a UTI. Patient does complain of a fever. Patient was also found to have a proximal tibial fracture and placed in a knee immobilizer. Patient is a full max assist to commode. States he has chronic edema in the legs right is typically worse. 05/11: Low-grade fever with T-max 37.9 overnight. Urine culture growing gram-negative bacillus. Blood culture no growth today. Orthopedic surgeons saw the patient and decided against surgery. Instead, recommend soft cast and 6 to 8 weeks nonweightbearing. Continue Zosyn while waiting for definitive culture results for urinary tract infections. Continue symptoms management for right leg fracture. Pending physical therapy Occupational Therapy evaluation and treatments for placement pending. Patient is complaining of mild right lower extremity pain at rest but becomes 9 out of 10 sharp constant pain whenever he tried to move. 05/12: Low-grade fever T-max 37.7 overnight. Urine culture growing gram-negative bacillus. Blood culture no growth today. He is complaining of fairly mild right knee pain at rest which gets exacerbated if he is try to move his right lower extremities. He also is committing of constipations with last bowel movement a few days ago. He denies any urinary symptoms such as dysuria. Denies any fever or chills. Continue soft cast in 6 to 8 weeks nonweightbearing status for his right tibial fibular fractures. Continue Zosyn while waiting for definitive culture results for urinary tract infections. Continue laxative and stool softener as needed to promote a bowel movement. Pending physical therapy Occupational Therapy evaluation and treatments for placement pending. 05/13: Reached clinical stability, accepted by and being discharged to SNF. Discharge diagnosis: right tibial/fibular fracture Time Spent with Patient Time attestation: Total time spent providing and/or coordinating discharge services: Time spent: Greater than 30 minutes EXAM Constitutional Vitals: Temp Pulse Resp BP Pulse Ox O2 Del Method 36.5 C 61 12 96/55 95 05/13/22 06:40 05/13/22 06:40 05/13/22 06:40 05/13/22 06:40 05/13/22 06:40 05/13/22 06:40 General appearance: cooperative and no acute distress Head Head exam: Present atraumatic and normocephalic Eye Eye exam: Present EOMI and PERRL ENT ENT exam: Present mucous membranes moist, normal exam and normal external ear exam Neck Neck exam: Present normal inspection; Absent lymphadenopathy, tenderness or thyromegaly Respiratory Respiratory exam: Absent accessory muscle use, respiratory distress or wheezes Cardiovascular Cardiovascular exam: Present normal rate and rhythm; Absent JVD GI/Abdominal GI/Abdominal exam: Present normal bowel sounds and soft; Absent organomegaly or tenderness Rectal Rectal exam: Present deferred Extremities Exam Extremities exam: Present normal capillary refill and tenderness; Absent full ROM or normal inspection Additional comments: Right lower extremity in soft cast Neurological Exam Neurological exam: Present alert, CN II-XII intact and oriented X3; Absent motor sensory deficit Psychiatric Psychiatric exam: Present normal affect and normal mood; Absent anxious or depressed Skin Skin exam: Present dry and intact Discharge Data Data Completed and Pending Labs on day of discharge: Labs from last 24 hours 05/13/22 05/13/22 05:12 05:12 WBC 10.4 RBC 3.35 L Hgb 10.6 L Hct 32.1 L MCV 95.8 MCH 31.6 MCHC 33.0 RDW 12.8 Plt Count 176 MPV 10.3 Immature Gran % (Auto) 0.5 Neut % (Auto) 62.0 Lymph % (Auto) 29.0 [place] % (Auto) 4.6 Eos % (Auto) 3.5 Baso % (Auto) 0.4 Lymph # (Auto) 3.02 [place] # (Auto) 0.48 Eos # (Auto) 0.36 Baso # (Auto) 0.04 Immature Gran # 0.05 Absolute Neutrophils 6.50 Sodium 133 Potassium 4.0 Chloride 99 Carbon Dioxide 27 Anion Gap 7.0 L BUN 10 Creatinine 0.9 GFR Calculation 80 Glucose 142 H Calcium 8.6 Total Bilirubin 0.5 AST 16 ALT 12 Alkaline Phosphatase 69 Total Protein 5.3 L Albumin 2.9 L Globulin 2.4 Albumin/Globulin Ratio 1.2 Preliminary micro results at discharge 05/10/22 17:05 Blood Culture - Preliminary Blood 05/10/22 17:00 Blood Culture - Preliminary Blood Discharge Plan Patient/Caregiver Discharge Instructions Activity: non-weight bearing Diet: Regular Diet Instructions: Leg Fracture (ED) Activity Restrictions/Additional Instructions: Follow-up with orthopedic surgery within 2 to 3 days Seek medical attention symptoms worsen Prescriptions: New hydrocodone-acetaminophen 5-325 mg Tablet 1 tab PO Q4HP PRN (Reason: Pain Level 3-6) Qty: 20 0RF methocarbamol 750 mg Tablet 750 mg PO Q6HP PRN (Reason: Muscle Spasm) Qty: 10 0RF Continued albuterol sulfate 2.5 mg /3 mL (0.083 %) solution for nebulization 2.5 mg inhalation .Q6-8H PRN (Reason: unknown) calcium carbonate [Calcium 600] 500 mg PO gabapentin 300 mg capsule 600 mg PO QAM AND QPM Multivitamin 50 Plus Tablet 1 tab PO QDAY ascorbic acid (vitamin C) 1,000 mg tablet 1 g PO QDAY duloxetine 60 MG capsule,delayed release(DR/EC) 60 mg PO DAILY bisoprolol fumarate 5 MG tablet 2.5 mg PO DAILY lamotrigine 25 mg tablet 1 tab PO QDAY lamotrigine 100 mg tablet 1 tab PO DAILY cholecalciferol (vitamin D3) 10 mcg (400 unit) Capsule 10 mcg PO QDAY Rx Instructions: 1 capsule every other day. [id number] 3.5 units suspension See Rx Instructions .ROUTE .COMPLEX Rx Instructions: Instill 4 drops into affected ears by otic route 3x a day lidocaine 5 % Kit 1 applic TOPICAL QDAY furosemide 20 mg tablet 20 tab PO PRN (Reason: Edema) Rx Instructions: Take 0.5 tablets every day by oral route as needed for edema. baclofen 20 mg tablet See Rx Instructions PO .COMPLEX Rx Instructions: Take 2 tablets BID. aspirin 325 mg tablet 325 mg PO QDAY (DME) Condom Catheter with Band 29mm See Rx Instructions .Route .MEDSUPPLY Qty: 30 6RF Rx Instructions: As directed Follow Up Plan Follow up with: Lucy Giron ARNP [Primary Care Provider] - Kunal Archibald PA-C [Physician Applications Development Analyst] - 05/24/22 10:40 am Patient Disposition: Xfer SNF Prognosis: Fair Rehab Potential: Good I certify that the patient requires SNF services: Yes Overall status at discharge: patient is progressing back to baseline Discharge Orders: Discharge Order (Routine); Ordered 05/13/22 Ordered By: Tristan Dejesus
[2022-05-13] MEDS: GABAPENTIN 300 MG CAPSULE PO SCH (09:31)
[2022-05-13] MEDS: BACLOFEN 10 MG TABLET PO SCH (09:32)
[2022-05-13] MEDS: ASCORBIC ACID 500 MG TABLET PO SCH (09:32)
[2022-05-13] MEDS: MULTIVIT,THER IRON,CA,FA & MIN 1 TABLET PO SCH (09:32)
[2022-05-13] MEDS: CALCIUM CARBONATE 500 MG TAB.CHEW PO SCH (09:32)
[2022-05-13] MEDS: BISOPROLOL 5 MG TABLET PO SCH (09:33)
[2022-05-13] MEDS: VITAMIN D3 10 MCG TABLET PO SCH (09:33)
[2022-05-13] MEDS: DOCUSATE SODIUM 100 MG CAPSULE PO SCH (09:34)
[2022-05-13] MEDS: ENOXAPARIN 40 MG/0.4 ML SYRINGE SQ SCH (09:34)
== END 2022-05-13 12:20 | DRG 562 ==
LOC: ED 20:50 → MEDSUR 05-10 09:00
PROVIDERS: ADMIT Internal Medicine; ATTEND Internal Medicine

== ENCOUNTER 2022-07-16 19:10 | Inpatient (IN) ==
[2022-07-16] MEDS ORDERED: 0.9 % SODIUM CHLORIDE 1,000 ML IV ONE ×2 (19:20→22:45)
[2022-07-16] MEDS ORDERED: LORazepam 2 MG/ML VIAL IV ONE (19:20)
[2022-07-16 19:44] LABS: POC INR 1.1 (0.8-1.2); POC Pro Time 13.5 (11.9-14.5)
--- NOTE | 2022-07-16 19:49 | Emergency Department Note ---
Altered Mental Status HPI General Chief Complaint: Trauma Stated Complaint: Fall Time Seen by Provider: 07/16/22 19:20 Source: family and EMS Mode of arrival: EMS Limitations: altered mental status History of Present Illness HPI Narrative: Narrative: Patient presents to ED via EMS from [facility] due to complaints of altered mental status and occurred prior to arrival. According to EMS [place] staff states that patient fell around 3 PM hitting the front of his head, small laceration. Patient refused treatment at that time. He states 4 hours later they went to check on him and he was nonresponsive initially but when he did respond he was confused and altered. Patient is altered and I cannot obtain any information from him. His son is at bedside and states that he was with his father last night and he was completely normal. He states he is definitely not at baseline and is confused and not making any sense. EMS states that faculty denied fever, chills, nausea, vomiting, extremity weakness, extremity numbness, known UTI symptoms. Patient son who was at bedside also denies dosings. Denies any other alleviating or aggravating factors. Related Data Home Medications Medication Instructions Recorded Confirmed duloxetine 60 mg capsule,delayed 60 mg PO DAILY 11/30/16 06/15/22 release bisoprolol fumarate 5 mg tablet 2.5 mg PO DAILY 08/19/17 06/15/22 ascorbic acid (vitamin C) 1,000 mg 1 g PO QDAY 04/13/21 06/15/22 tablet baclofen 20 mg tablet See Rx Instructions PO .COMPLEX 04/13/21 06/15/22 calcium carbonate [Calcium 600] 500 mg PO DAILY 04/13/21 06/15/22 gabapentin 300 mg capsule 600 mg PO QAM AND QPM 04/13/21 06/15/22 [id number] 1 tab PO QDAY 04/13/21 06/15/22 tablet (Multivitamin 50 Plus tablet) cholecalciferol (vitamin D3) 10 10 mcg PO QDAY 05/10/22 06/15/22 mcg (400 unit) capsule lamotrigine 100 mg tablet 1 tab PO DAILY 05/10/22 06/15/22 lamotrigine 25 mg tablet 1 tab PO QDAY 05/10/22 06/15/22 lidocaine 5 % topical kit 1 applic topical QDAY 05/10/22 06/15/22 [id number] See Rx Instructions .Route .COMPLEX 05/10/22 06/15/22 albuterol 90 mcg/actuation aerosol 1 mcg inhalation DAILY 05/13/22 06/15/22 inhaler clopidogrel 75 mg tablet mg PO 07/16/22 tizanidine 2 mg capsule 2 mg PO TID PRN Spasms 07/16/22 07/16/22 Previous Rx's Medication Instructions Recorded Condom Catheter with Band #30 ea 04/15/22 hydrocodone 5 mg-acetaminophen 325 1 tab PO Q4HP PRN Pain Level 3-6 05/13/22 mg tablet #20 tabs methocarbamol 750 mg tablet 750 mg PO Q6HP PRN Muscle Spasm 05/13/22 #10 tabs Allergies Allergy/AdvReac Type Severity Reaction Status Date / Time clindamycin Allergy Mild hives Verified 07/16/22 19:19 animal dander Allergy Unknown unknown Verified 07/16/22 19:19 pollen extracts Allergy Unknown unknown Verified 07/16/22 19:19 morphine AdvReac Intermediate Seizure Verified 07/16/22 19:19 Review of Systems ROS ROS Narrative: Narrative: All systems ED: reviewed and negative except as stated. PFS Narrative Patient History Narrative: Narrative: Medical/Surgical/Family History All Active Problems (Updated 07/16/22 @ 23:55 by Kurtis Dumont DO) AMS (altered mental status) (Acute) Fall (Acute) Depression (Acute) Essential hypertension (Acute) Fracture of right tibia and fibula (Acute) Allergic rhinitis (Chronic) BPH (benign prostatic hyperplasia) (Chronic) Erectile dysfunction (Chronic) Nocturia (Chronic) Obstructive sleep apnea (Chronic) Peyronie disease (Chronic) Urinary frequency (Chronic) Weight loss (Chronic) Neck fracture (Chronic) Hernia of abdominal wall (Chronic) Hx of prostate biopsy (Chronic 05/29/15) History of prostate surgery (Chronic) Scalp laceration (Chronic) Urinary tract infection (Chronic) Urge incontinence (Chronic) Abrasion of face without infection (Chronic) Concussion without loss of consciousness (Chronic) Cervical radiculopathy (Chronic) History of spinal cord injury (Chronic ~06/2014) Chronic pain (Chronic) Cellulitis (Chronic) 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) Seizure disorder (Chronic) Acquired lymphedema (Chronic) Bronchitis (Chronic) Induration penis plastica (Chronic) Edema of lower extremity (Chronic) DVT (deep venous thrombosis) (Chronic) Abscess (Chronic) Paraparesis (Chronic) Insomnia (Chronic) Pressure ulcer of sacral region (Chronic) Pressure ulcer of buttock (Chronic) Idiopathic peripheral neuropathy (Chronic) GERD (gastroesophageal reflux disease) (Chronic) Diverticulitis (Chronic) Depressive disorder (Chronic) Hypertension (Chronic) Osteoarthritis (Chronic) Neurogenic bladder (Chronic) Atrial fibrillation (Chronic) Adverse reaction to drug (Chronic) Hypersomnia (Chronic) Epilepsy (Chronic) Renal mass of unknown nature (Chronic) Lumbar radiculopathy (Chronic) On anticoagulant therapy (Chronic) History of pulmonary embolism (Chronic) Acute pain of left shoulder (Acute) Acute pain of left knee (Acute) 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) Renal mass (Acute) Closed tibial fracture (Acute) Acute UTI (Acute) Unable to care for self (Acute) Generalized weakness (Acute) Medical History Abrasion of face without infection Abscess Acquired lymphedema Adverse reaction to drug Allergic rhinitis Atrial fibrillation BPH (benign prostatic hyperplasia) Bronchitis Cellulitis Cervical radiculopathy Chronic pain Clear cell carcinoma of kidney Concussion without loss of consciousness Depressive disorder Diverticulitis DJD of both shoulders DVT (deep venous thrombosis) Edema of lower extremity Epilepsy Erectile dysfunction GERD (gastroesophageal reflux disease) Hernia of abdominal wall History of pulmonary embolism History of spinal cord injury (~06/2014) incomplete cervical Hypersomnia Hypertension Idiopathic peripheral neuropathy 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 level Induration penis plastica Insomnia Lumbar radiculopathy Myelomalacia Neoplasm of uncertain behavior of trachea Neurogenic bladder Nocturia Obstructive sleep apnea On anticoagulant therapy Osteoarthritis Paraparesis Peyronie disease Pressure ulcer of buttock Pressure ulcer of sacral region Renal mass of unknown nature Scalp laceration Seizure disorder Urge incontinence Urinary frequency Urinary tract infection Weight loss Surgical History History of back surgery History of cervical spinal surgery History of discectomy History of hernia repair History of prostate surgery History of surgery 07/03 LESI #1 L2-3 w/o sed 06/28/201711/01 LESI #2 L4-5 w/o sed 10/28/1509/30 LESI #1 L4-5 w/o sed 10/01/1508/31 TF JEANETH #2 L4-5 w/o sed 09/10/201503/31 TF JEANETH #1 Left L4-5 w/o sed 03/24/2015 History of tonsillectomy History of transurethral resection of prostate Hx of prostate biopsy (05/29/15) Neck fracture Family History Brother Depression Mother , age 94; old age No problems noted. Father , age 34; murdered Kidney stone Social History Smoking Status: Current some day smoker Alcohol Intake Frequency: does not drink Substance Use: marijuana Exam Narrative Narrative: Narrative: General Limitations: altered mental status General appearance: Present alert Expanded Head Head image: 1. Superficial head laceration Eye Eye: Present PERRL and EOMI Neck Neck: Present normal inspection; Absent tenderness Chest Chest: Present normal inspection; Absent tenderness Respiratory Respiratory: Present normal lung sounds bilaterally Cardiovascular Cardiovascular: Present regular rate and normal rhythm Extremities Extremities: Present normal capillary refill Back Back: Absent tenderness Neurological Neurological: Present alert and other (Patient is confused) Psychiatric Psychiatric: Present other (Pleasantly confused) Skin Skin: Present warm (WNL) and intact Course Course Course Narrative: Patient was the evaluated for complaints of altered mental status secondary to a fall. Patient was quite agitated and would not cooperate with CT scan or lab draws. Patient states he was definitely his baseline and he is usually much more alert and coherent. Patient was given 0.25 mg of Ativan after which he did calm down. CT of the head was obtained and was unremarkable for any acute intracranial pathology. Labs returned unremarkable with the exception of mild leukocytosis but his procalcitonin was within normal limits. Urine was unremarkable though did have leukocytes there was no bacteria. Patient is afebrile. He was given some IV fluids. After the Ativan patient became somnolent he would not wake up he was sleeping. Case was discussed with hospitalist who was agreed to admit the patient for altered mental status for observation. Patient is a DNR/DNI. Family informed decision to observe. Reevaluation(s) Reevaluation #1: Patient remains hemodynamic stable. He still confused and more somnolent at this time. Time: 20:30 Consultations Consultation #1: Case discussed with hospitalist who has agreed to admit the patient for observation. Time: 23:50 Vital Signs Vital signs: Vital Signs Temperature 97.1 F 07/16/22 19:10 Pulse Rate 89 07/16/22 19:10 Respiratory Rate 15 07/16/22 19:10 Blood Pressure 122/94 07/16/22 19:10 Pulse Oximetry (%) 100 07/16/22 19:10 Oxygen Delivery Method 07/16/22 19:10 Oxygen Flow Rate (L/min) 2 07/16/22 19:10 Temperature 97.2 F 07/16/22 20:11 Pulse Rate 83 07/16/22 23:29 Respiratory Rate 12 07/16/22 23:16 Blood Pressure 94/61 07/16/22 23:29 Pulse Oximetry (%) 97 07/16/22 23:29 Oxygen Delivery Method 07/16/22 19:43 Oxygen Flow Rate (L/min) 2 07/16/22 19:43 MDM MDM Narrative Medical decision making narrative: Narrative: Differential Diagnosis Differential Diagnosis: Altered mental status, intracranial hemorrhage, UTI Medical Records Medical records reviewed: Yes I reviewed the patient's medical records. Lab Data Lab results reviewed: Yes I reviewed the patient's lab results. Result diagrams: 07/16/22 19:35 Labs: Lab Results 07/16/22 07/16/22 07/16/22 Range/Units 19:35 19:35 19:35 WBC 13.6 H (4.5-11.0) K/mcL RBC 4.34 L (4.63-6.08) M/mcL Hgb 13.5 L (13.7-17.5) g/dL Hct 41.4 (40.1-51.0) % POC Hct (41-55) MCV 95.4 (80.0-100.0) fL MCH 31.1 (26.0-34.0) pg MCHC 32.6 (31.0-36.0) g/dL RDW 12.7 (11.5-14.5) % Plt Count 229 (140-440) K/mcL MPV 10.2 (8.8-12.5) fL Immature Gran % (Auto) 0.5 (0.0-0.5) % Neut % (Auto) 56.2 (38.0-78.0) % Lymph % (Auto) 35.6 (15.5-49.0) % [place] % (Auto) 6.0 (1.0-12.0) % Eos % (Auto) 1.3 (0.0-7.0) % Baso % (Auto) 0.4 (0.0-2.0) % Lymph # (Auto) 4.85 H (1.50-4.80) K/mcL [place] # (Auto) 0.82 (0.10-0.90) K/mcL Eos # (Auto) 0.18 (0.00-0.70) K/mcL Baso # (Auto) 0.05 (0.00-0.30) K/mcL Immature Gran # 0.07 H (0.00-0.05) K/mcl Absolute Neutrophils 7.65 (1.80-8.00) K/mcL POC PT (11.9-14.5) POC INR (0.8-1.2) POC Sodium (133-145) POC Potassium (3.3-5.1) POC Chloride (96-108) POC Total CO2 (22-30) POC BUN (6-20) POC Creatinine (0.6-1.2) POC Glucose (70-105) POC WB Ioniz Calcium (1.16-1.32) Ammonia 31 (16-60) umol/L Procalcitonin 0.04 (<0.10) ng/mL Urine Color Urine Appearance (Clear) Urine pH (5.0-9.0) Ur Specific [place] (1.000-1.035) Urine Protein (Negative) mg/dL Urine Glucose (UA) (Negative) mg/dL Urine Ketones (Negative) mg/dL Urine Occult Blood (Negative) mg/dL Urine Nitrate (Negative) Urine Bilirubin (Negative) mg/dL Urine Urobilinogen mg/dL Ur Leukocyte Esterase (Negative) /uL Urine RBC (0-3) /hpf Urine WBC (0-4) /hpf Ur Squamous Epith Cells (0-4) /hpf Urine Bacteria (0) /hpf Urine Mucus (None) /hpf Ur Culture Indicated? 07/16/22 07/16/22 07/16/22 Range/Units 19:40 20:23 20:35 WBC (4.5-11.0) K/mcL RBC (4.63-6.08) M/mcL Hgb (13.7-17.5) g/dL Hct (40.1-51.0) % POC Hct 36.0 L (41-55) MCV (80.0-100.0) fL MCH (26.0-34.0) pg MCHC (31.0-36.0) g/dL RDW (11.5-14.5) % Plt Count (140-440) K/mcL MPV (8.8-12.5) fL Immature Gran % (Auto) (0.0-0.5) % Neut % (Auto) (38.0-78.0) % Lymph % (Auto) (15.5-49.0) % [place] % (Auto) (1.0-12.0) % Eos % (Auto) (0.0-7.0) % Baso % (Auto) (0.0-2.0) % Lymph # (Auto) (1.50-4.80) K/mcL [place] # (Auto) (0.10-0.90) K/mcL Eos # (Auto) (0.00-0.70) K/mcL Baso # (Auto) (0.00-0.30) K/mcL Immature Gran # (0.00-0.05) K/mcl Absolute Neutrophils (1.80-8.00) K/mcL POC PT 13.5 (11.9-14.5) POC INR 1.1 (0.8-1.2) POC Sodium 140 (133-145) POC Potassium 3.8 (3.3-5.1) POC Chloride 104 (96-108) POC Total CO2 26.0 (22-30) POC BUN 19 (6-20) POC Creatinine 0.9 (0.6-1.2) POC Glucose 108 H (70-105) POC WB Ioniz Calcium 1.12 L (1.16-1.32) Ammonia (16-60) umol/L Procalcitonin (<0.10) ng/mL Urine Color Yellow Urine Appearance Cloudy A (Clear) Urine pH 5.0 (5.0-9.0) Ur Specific [place] 1.010 (1.000-1.035) Urine Protein Negative (Negative) mg/dL Urine Glucose (UA) Negative (Negative) mg/dL Urine Ketones Negative (Negative) mg/dL Urine Occult Blood Negative (Negative) mg/dL Urine Nitrate Negative (Negative) Urine Bilirubin Negative (Negative) mg/dL Urine Urobilinogen Negative mg/dL Ur Leukocyte Esterase 500 A (Negative) /uL Urine RBC 1 (0-3) /hpf Urine WBC > 182 H (0-4) /hpf Ur Squamous Epith Cells 0 (0-4) /hpf Urine Bacteria None (0) /hpf Urine Mucus Mod A (None) /hpf Ur Culture Indicated? yes Radiology Data Radiology results reviewed: Yes I reviewed the patient's radiology results. Radiology results narrative: CT of the head, no acute intracranial findings. EKG Data EKG #1: EKG attestation: Yes I reviewed and interpreted this EKG. Rate: normal Rhythm: A.Fib Heart block present: None ST segment elevation in: None ST segment depression in: None Interpretation: no acute changes Core Measures AMI Core Measures Followed: Yes Discharge Plan Patient/Caregiver Discharge Instructions Pt seen by DECORATING AND ASSEMBLY SUPERVISOR/PA only: No Clinical Impression: AMS (altered mental status), Fall Patient Disposition: Xfer As Outpt/Obs ([facility]) Condition: Fair Follow up with: Angel Goff DO [Primary Care Provider] - Prescriptions: No Action calcium carbonate [Calcium 600] 500 mg PO DAILY gabapentin 300 mg capsule 600 mg PO QAM AND QPM Multivitamin 50 Plus Tablet 1 tab PO QDAY ascorbic acid (vitamin C) 1,000 mg tablet 1 g PO QDAY duloxetine 60 MG capsule,delayed release(DR/EC) 60 mg PO DAILY bisoprolol fumarate 5 MG tablet 2.5 mg PO DAILY lamotrigine 25 mg tablet 1 tab PO QDAY lamotrigine 100 mg tablet 1 tab PO DAILY cholecalciferol (vitamin D3) 10 mcg (400 unit) Capsule 10 mcg PO QDAY Rx Instructions: 1 capsule every other day. izdaphll-gsakxbhfi-BS 3.5 units suspension See Rx Instructions .ROUTE .COMPLEX Rx Instructions: Instill 4 drops into affected ears by otic route 3x a day lidocaine 5 % Kit 1 applic TOPICAL QDAY hydrocodone-acetaminophen 5-325 mg Tablet 1 tab PO Q4HP PRN (Reason: Pain Level 3-6) Qty: 20 0RF methocarbamol 750 mg Tablet 750 mg PO Q6HP PRN (Reason: Muscle Spasm) Qty: 10 0RF albuterol 90 mcg/actuation Aerosol 1 mcg INHALATION DAILY clopidogrel 75 mg Tablet PO tizanidine 2 mg Capsule 2 mg PO TID PRN (Reason: Spasms) baclofen 20 mg tablet See Rx Instructions PO .COMPLEX Rx Instructions: take 2 tablets twice a day (DME) Condom Catheter with Band 29mm See Rx Instructions .Route .MEDSUPPLY Qty: 30 6RF Rx Instructions: As directed
[2022-07-16 20:18] LABS: Basophils # (Auto) 0.05 K/mcL (0.00-0.30); Basophils % (Auto) 0.4 % (0.0-2.0); Eosinophils # (Auto) 0.18 K/mcL (0.00-0.70); Eosinophils % (Auto) 1.3 % (0.0-7.0); Hematocrit 41.4 % (40.1-51.0); Hemoglobin 13.5 g/dL (13.7-17.5); Lymphocytes # (Auto) 4.85 K/mcL (1.50-4.80); Lymphocytes % (Auto) 35.6 % (15.5-49.0); Mean Cell Volume 95.4 fL (80.0-100.0); Mean Corpuscular HGB Conc 32.6 g/dL (31.0-36.0); Mean Platelet Volume 10.2 fL (8.8-12.5); Monocytes # (Auto) 0.82 K/mcL (0.10-0.90); Neutrophils % (Auto) 56.2 % (38.0-78.0); Platelet Count 229 K/mcL (140-440); RBC 4.34 M/mcL (4.63-6.08); Red Cell Distribution Width 12.7 % (11.5-14.5); WBC 13.6 K/mcL (4.5-11.0)
[2022-07-16 20:26] LABS: POC Calcium, Ionized 1.12 (1.16-1.32); POC Creatinine 0.9 (0.6-1.2); POC Potassium 3.8 (3.3-5.1)
[2022-07-16 21:09] LABS: Appearance,Urine CLOUDY (Clear); Bilirubin,Urine Negative (Negative); Color,Urine YELLOW; Culture Indicated,Urine yes; Glucose,Urine (UA) Negative (Negative); Ketones,Urine Negative (Negative); Leukocyte Esterase,Urine 500 /uL (Negative); Mucus,Urine MOD /hpf; Nitrate,Urine Negative (Negative); Protein,Urine Negative (Negative); Urine Blood Negative (Negative); Urine RBC 1 /hpf (0-3); Urine Squamous Epithelial Cell 0 /hpf (0-4); Urine WBC > 182 /hpf (0-4); Urobilinogen,Urine Negative
[2022-07-16] MEDS ORDERED: ONDANSETRON 4 MG/2 ML VIAL IV ONE (23:55)
[2022-07-16] MEDS ORDERED: ACETAMINOPHEN 325 MG TABLET PO PRN (23:55)
[2022-07-16] MEDS ORDERED: cefTRIAXone 2 GM in DEXTROSE 5% IN WATER 50 ML IV ONE (23:59)
[2022-07-17] MEDS ORDERED: ONDANSETRON 4 MG/2 ML VIAL IV PRN ×2 (00:01→11:32)
--- NOTE | 2022-07-17 05:49 | Cat Scan Report ---
INDICATION: fall COMPARISON: None. TECHNIQUE: Axial noncontrast-enhanced images through the brain. Sagittally and coronally reformatted images. FINDINGS: Examination was initially interpreted by [facility] Cerebral hemispheres:Negative. No intra-axial abnormality. No intra-axial hematoma. No localized mass effect.Brain volume is within normal limits for age. Periventricular white matter is negative without significant attenuation abnormality. Brainstem and cerebellum:No intra-axial abnormality Extra-axial:No acute hemorrhage. No subdural or epidural hematoma. No subarachnoid hemorrhage. Basilar cisterns are normal Calvarial:No calvarial fracture. No lytic lesion Temporal bones are negative. No destructive lesions Soft tissue, orbits, sinuses:Orbits and visualized facial soft tissues and paranasal sinuses are negative IMPRESSION: Negative noncontrast enhanced post trauma brain CT scan The exam was performed using radiation dose optimization techniques including, but not limited to, automated exposure control, adjustment of the mA and/or kV according to patient size and use of iterative reconstruction technique. Interpreted and Authenticated by: Angel Bolton 07/17/22
[2022-07-17] MEDS: 0.9 % SODIUM CHLORIDE 1,000 ML IV SCH ×3 (07:25→09:09)
--- NOTE | 2022-07-17 07:38 | Internal Med History&Physical ---
HPI History of Present Illness Patient information: Note initiated : 07/17/22 at 7:26 am Service Date, if different from initiated Date: [] Patient: Gee Morton a 81 y/o M admitted on 07/17/22 for Fall. Chief Complaint: [] History of present illness: Mr. Morton is a 81 year old M Presents the ED after falling out of his wheelchair. Patient received laceration to his forehead but refused to come to ED. He has become weaker and less responsive to staff and thus was brought into the ED. History obtained from son from because of patient's altered state. Son stated that the night prior to the fall he was completely normal and is confused at this time. In the ED his vitals were stable and his chemistry was okay but his CBC did show a elevated white blood cell count and his urine was consistent with infection. Per records he was admitted in April for very similar presentation generalized weakness and UTI and he also had a knee fracture at that time. Patient was in the hospital for 3 days. Patient grew out Pseudomonas from his urine culture in March and then E. coli in April. Review of Systems: Complains of a mild cough but no dyspnea complains of constipation. Other pertinent positives as above. Denies headache/fever/chil ls/nausea/vomiting/chest or abdominal pain. Many 10 point review of system reviewed negative PFSH PFSH All Active Problems (Updated 07/16/22 @ 23:55 by Kurtis Dumont DO) AMS (altered mental status) (Acute) Fall (Acute) Depression (Acute) Essential hypertension (Acute) Fracture of right tibia and fibula (Acute) Allergic rhinitis (Chronic) BPH (benign prostatic hyperplasia) (Chronic) Erectile dysfunction (Chronic) Nocturia (Chronic) Obstructive sleep apnea (Chronic) Peyronie disease (Chronic) Urinary frequency (Chronic) Weight loss (Chronic) Neck fracture (Chronic) Hernia of abdominal wall (Chronic) Hx of prostate biopsy (Chronic 05/29/15) History of prostate surgery (Chronic) Scalp laceration (Chronic) Urinary tract infection (Chronic) Urge incontinence (Chronic) Abrasion of face without infection (Chronic) Concussion without loss of consciousness (Chronic) Cervical radiculopathy (Chronic) History of spinal cord injury (Chronic ~06/2014) Chronic pain (Chronic) Cellulitis (Chronic) 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) Seizure disorder (Chronic) Acquired lymphedema (Chronic) Bronchitis (Chronic) Induration penis plastica (Chronic) Edema of lower extremity (Chronic) DVT (deep venous thrombosis) (Chronic) Abscess (Chronic) Paraparesis (Chronic) Insomnia (Chronic) Pressure ulcer of sacral region (Chronic) Pressure ulcer of buttock (Chronic) Idiopathic peripheral neuropathy (Chronic) GERD (gastroesophageal reflux disease) (Chronic) Diverticulitis (Chronic) Depressive disorder (Chronic) Hypertension (Chronic) Osteoarthritis (Chronic) Neurogenic bladder (Chronic) Atrial fibrillation (Chronic) Adverse reaction to drug (Chronic) Hypersomnia (Chronic) Epilepsy (Chronic) Renal mass of unknown nature (Chronic) Lumbar radiculopathy (Chronic) On anticoagulant therapy (Chronic) History of pulmonary embolism (Chronic) Acute pain of left shoulder (Acute) Acute pain of left knee (Acute) 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) Renal mass (Acute) Closed tibial fracture (Acute) Acute UTI (Acute) Unable to care for self (Acute) Generalized weakness (Acute) Medical History Abrasion of face without infection Abscess Acquired lymphedema Adverse reaction to drug Allergic rhinitis Atrial fibrillation BPH (benign prostatic hyperplasia) Bronchitis Cellulitis Cervical radiculopathy Chronic pain Clear cell carcinoma of kidney Concussion without loss of consciousness Depressive disorder Diverticulitis DJD of both shoulders DVT (deep venous thrombosis) Edema of lower extremity Epilepsy Erectile dysfunction GERD (gastroesophageal reflux disease) Hernia of abdominal wall History of pulmonary embolism History of spinal cord injury (~06/2014) incomplete cervical Hypersomnia Hypertension Idiopathic peripheral neuropathy 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 level Induration penis plastica Insomnia Lumbar radiculopathy Myelomalacia Neoplasm of uncertain behavior of trachea Neurogenic bladder Nocturia Obstructive sleep apnea On anticoagulant therapy Osteoarthritis Paraparesis Peyronie disease Pressure ulcer of buttock Pressure ulcer of sacral region Renal mass of unknown nature Scalp laceration Seizure disorder Urge incontinence Urinary frequency Urinary tract infection Weight loss Surgical History History of back surgery History of cervical spinal surgery History of discectomy History of hernia repair History of prostate surgery History of surgery 07/03 LESI #1 L2-3 w/o sed 06/28/201711/01 LESI #2 L4-5 w/o sed 10/28/1509/30 LESI #1 L4-5 w/o sed 10/01/1508/31 TF JEANETH #2 L4-5 w/o sed 09/10/201503/31 TF JEANETH #1 Left L4-5 w/o sed 03/24/2015 History of tonsillectomy History of transurethral resection of prostate Hx of prostate biopsy (05/29/15) Neck fracture Family History Brother Depression Mother , age 94; old age No problems noted. Father , age 34; murdered Kidney stone Social History occupational status: retired smoking status: Current some day smoker smoking status stop date: 06/19/15 alcohol intake frequency: does not drink substance use type: marijuana MEDS/ALLERGIES Home Medications and Allergies Home Medications Medication Instructions Recorded Confirmed Type duloxetine 60 mg capsule,delayed 60 mg PO DAILY 11/30/16 07/17/22 History release bisoprolol fumarate 5 mg tablet 2.5 mg PO DAILY 08/19/17 07/17/22 History ascorbic acid (vitamin C) 1,000 mg 1,000 mg PO QDAY 04/13/21 07/17/22 History tablet baclofen 20 mg tablet 60 mg PO BID 04/13/21 07/17/22 History calcium carbonate [Calcium 600] 500 mg PO DAILY 04/13/21 07/17/22 History gabapentin 300 mg capsule 600 mg PO TID 04/13/21 07/17/22 History pxknakzpvays-yrxbvzjt-bjpzvv 1 tab PO QDAY 04/13/21 07/17/22 History tablet (Multivitamin 50 Plus tablet) cholecalciferol (vitamin D3) 10 10 mcg PO QDAY 05/10/22 07/17/22 History mcg (400 unit) capsule lamotrigine 100 mg tablet 1 tab PO DAILY 05/10/22 07/17/22 History lamotrigine 25 mg tablet 1 tab PO QDAY 05/10/22 07/17/22 History albuterol 90 mcg/actuation aerosol 1 mcg inhalation DAILY 05/13/22 07/17/22 History inhaler hydrocodone 5 mg-acetaminophen 325 1 tab PO Q4HP PRN Pain Level 3-6 05/13/22 07/17/22 Rx mg tablet #20 tabs tizanidine 2 mg capsule 2 mg PO Q6HP PRN Spasms 07/16/22 07/17/22 History lidocaine 4 % topical patch 1 patch topical QDAY PRN Pain 07/17/22 07/17/22 History (Blue-Emu Lidocaine Patch) melatonin 5 mg tablet 5 mg PO HS 07/17/22 07/17/22 History mirtazapine 7.5 mg tablet 7.5 mg PO QPM 07/17/22 07/17/22 History ropinirole 0.25 mg tablet 0.25 mg PO TID 07/17/22 07/17/22 History silver sulfadiazine 1 % topical 1 applic topical QDAY 07/17/22 07/17/22 History cream (Silvadene) Allergies Allergy/AdvReac Type Severity Reaction Status Date / Time clindamycin Allergy Mild hives Verified 07/16/22 19:19 animal dander Allergy Unknown unknown Verified 07/16/22 19:19 pollen extracts Allergy Unknown unknown Verified 07/16/22 19:19 morphine AdvReac Intermediate Seizure Verified 07/16/22 19:19 EXAM Constitutional Vitals: Temp Pulse Resp BP Pulse Ox O2 Del Method O2 Flow Rate 96.5 F L 73 14 114/85 96 1 07/17/22 03:19 07/17/22 03:19 07/17/22 03:19 07/17/22 03:19 07/17/22 03:19 07/17/22 03:19 07/17/22 03:19 Exam: General: Awake, No acute Distress Eyes/N/T: EOMI, PERRL, Head/Neck: neck supple, normocephalic atraumatic CV: RRR, No murmurs, normal s1/s2 Pulm: Clear b/l, no wheezing/rhonchi/rales Abd: soft, nontender, +BS x4 Ext: no clubbing/cyanosis, b/l LE edema Neuro: Alert but slow to answer questions, no focal deficits, moves all extremities, CN 2-12 grossly intact, Skin: warm/dry DATA Data Completed and Pending Labs: Labs from last 24 hours 09/30/22 09/30/22 09/30/22 20:35 20:23 19:40 WBC RBC Hgb Hct POC Hct 36.0 L MCV MCH MCHC RDW Plt Count MPV Immature Gran % (Auto) Neut % (Auto) Lymph % (Auto) Story % (Auto) Eos % (Auto) Baso % (Auto) Lymph # (Auto) Story # (Auto) Eos # (Auto) Baso # (Auto) Immature Gran # Absolute Neutrophils POC PT 13.5 POC INR 1.1 POC Sodium 140 POC Potassium 3.8 POC Chloride 104 POC Total CO2 26.0 POC BUN 19 POC Creatinine 0.9 POC Glucose 108 H POC WB Ioniz Calcium 1.12 L Ammonia Procalcitonin Urine Color Yellow Urine Appearance Cloudy A Urine pH 5.0 Ur Specific [place] 1.010 Urine Protein Negative Urine Glucose (UA) Negative Urine Ketones Negative Urine Occult Blood Negative Urine Nitrate Negative Urine Bilirubin Negative Urine Urobilinogen Negative Ur Leukocyte Esterase 500 A Urine RBC 1 Urine WBC > 182 H Ur Squamous Epith Cells 0 Urine Bacteria None Urine Mucus Mod A Ur Culture Indicated? yes 07/16/22 07/16/22 07/16/22 19:35 19:35 19:35 WBC 13.6 H RBC 4.34 L Hgb 13.5 L Hct 41.4 POC Hct MCV 95.4 MCH 31.1 MCHC 32.6 RDW 12.7 Plt Count 229 MPV 10.2 Immature Gran % (Auto) 0.5 Neut % (Auto) 56.2 Lymph % (Auto) 35.6 Story % (Auto) 6.0 Eos % (Auto) 1.3 Baso % (Auto) 0.4 Lymph # (Auto) 4.85 H Story # (Auto) 0.82 Eos # (Auto) 0.18 Baso # (Auto) 0.05 Immature Gran # 0.07 H Absolute Neutrophils 7.65 POC PT POC INR POC Sodium POC Potassium POC Chloride POC Total CO2 POC BUN POC Creatinine POC Glucose POC WB Ioniz Calcium Ammonia 31 Procalcitonin 0.04 Urine Color Urine Appearance Urine pH Ur Specific [place] Urine Protein Urine Glucose (UA) Urine Ketones Urine Occult Blood Urine Nitrate Urine Bilirubin Urine Urobilinogen Ur Leukocyte Esterase Urine RBC Urine WBC Ur Squamous Epith Cells Urine Bacteria Urine Mucus Ur Culture Indicated? A/P Narrative A/P Narrative: A: *Generalized weakness/deconditioning/Falling: *UTI(h/o pseudomonas): *Encephalopathy: 2/2 above *Sepsis: 2/2 above -Leukocytosis *Volume depletion: *HTN: *Depression: *Chronic pain & Neuropathy: P: -Cefepime pending UC -IVF's -PT/OT -cont home BB, baclofen, lamictal -CM for placement needs -ppx: lovenox DNR Time Spent With Patient Time: Total time spent is greater than 50% in coordination of care (as documented) at patient's floor/unit and/or counseling patient: Total time spent with greater than 50% in coordination of care (as documented) at patient's floor/unit and/or counseling patient:: 50 - 70 minutes QUALITY VTE Deep Vein Thrombosis/Pulmonary Embolism Present on Admission: No
[2022-07-17] MEDS ORDERED: tiZANidine 4 MG TABLET PO PRN (08:07)
[2022-07-17] MEDS: rOPINIRole 0.25 MG TABLET PO SCH ×3 (08:38→20:45)
[2022-07-17] MEDS ORDERED: LIDOCAINE PATCH TOPICAL PRN (08:38)
[2022-07-17] MEDS: DULoxetine 30 MG CAPSULE PO SCH (08:38)
[2022-07-17] MEDS: BISOPROLOL 5 MG TABLET PO SCH (08:39)
[2022-07-17] MEDS: GABAPENTIN 300 MG CAPSULE PO SCH ×3 (08:40→20:45)
[2022-07-17] MEDS: HYDROcodone/APAP 5/325MG TABLET PO PRN ×2 (08:40→20:47)
[2022-07-17] MEDS: BACLOFEN 10 MG TABLET PO SCH ×2 (08:41→20:46)
[2022-07-17] MEDS: lamoTRIgine 100 MG TABLET PO SCH (08:49)
[2022-07-17] MEDS: lamoTRIgine 25 MG TABLET PO SCH (08:49)
--- NOTE | 2022-07-17 09:54 | EKG ---
[facility] Test Date: 2022-07-16 Pat Name: Gee Morton Department: ED Room: Gender: Male [employer] Supervisor: JOSE EDUARDO : 1940 Requested By: Kurtis Dumont Order Number: [id number] Reading MD: Nacho Morrow Measurements Intervals [place] Rate: 90 P: FL: QRS: -79 QRSD: 96 T: 90 QT: 368 QTc: 451 Interpretive Statements Atrial fibrillation Abnormal R-wave progression, early transition Inferior infarct, old Lateral leads are also involved Baseline wander in lead(s) V6 Electronically Signed On 07-17-2022 9:54:30 PDT by Nacho Morrow /store/M0/[id number]/[id number]
[2022-07-17] MEDS ORDERED: MAGNESIUM SULFATE 2 GM/50 ML BAG IV PRN (11:32)
[2022-07-17] MEDS ORDERED: POTASSIUM CHLORIDE 40 MEQ in DEXTROSE 5% IN WATER 500 ML IV PRN (11:32)
[2022-07-17] MEDS ORDERED: IPRATROPIUM/ALBUTEROL 3 ML AMPUL.NEB NEB PRN (11:32)
[2022-07-17] MEDS ORDERED: POTASSIUM CHLORIDE 20 MEQ TABLET PO PRN ×2 (11:32)
[2022-07-17] MEDS ORDERED: POLYETHYLENE GLYCOL 3350 17 GM PACKET PO PRN (11:32)
[2022-07-17] MEDS ORDERED: SENNOSIDES 1 TABLET PO PRN (11:32)
[2022-07-17] MEDS: CEFEPIME 1 GM VIAL IV SCH ×2 (13:58→20:52)
[2022-07-17] MEDS: ENOXAPARIN 40 MG/0.4 ML SYRINGE SQ SCH (13:59)
[2022-07-17] MEDS: 0.9 % SODIUM CHLORIDE 10 ML SYRINGE IV SCH ×2 (14:00→20:48)
[2022-07-17] MEDS: DOCUSATE SODIUM 100 MG CAPSULE PO SCH ×2 (14:00→20:48)
[2022-07-17 15:19] LABS: Hematocrit 40.6 % (40.1-51.0); Hemoglobin 12.9 g/dL (13.7-17.5); Mean Cell Volume 98.8 fL (80.0-100.0); Mean Corpuscular HGB Conc 31.8 g/dL (31.0-36.0); Mean Platelet Volume 10.1 fL (8.8-12.5); Platelet Count 218 K/mcL (140-440); RBC 4.11 M/mcL (4.63-6.08); Red Cell Distribution Width 12.9 % (11.5-14.5)
[2022-07-17 15:35] LABS: ALT/SGPT 9 U/L (<40); AST/SGOT 14 U/L (<40); Albumin 3.4 gm/dL (3.2-5.2); Albumin/Globulin Ratio 1.9 (1.0-2.3); Alkaline Phosphatase 141 U/L (39-117); Bilirubin,Direct < 0.2 mg/dL (0-0.3); Bilirubin,Total 0.3 mg/dL (0.1-1.0); Blood Urea Nitrogen 11 mg/dL (8-23); Calcium 8.9 mg/dL (8.6-10.4); Carbon Dioxide 28 mmol/L (22-30); Chloride 102 mmol/L (96-108); Globulin 1.8 gm/dL (2.2-3.7); Glomerular Filtration Rate 89; Glucose 67 mg/dL (70-105); Lactate Dehydrogenase 202 U/L (135-225); Phosphorous 3.4 mg/dL (2.5-4.5); Triglycerides 55 mg/dL (<150); Uric Acid 5.3 mg/dL (2.5-8.0)
[2022-07-17 15:49] LABS: Eosinophils % (Manual) 4 % (0-7); Lymphocytes % 33 % (15-49); Macrocytosis 1+ (None Seen); Monocytes % (Manual) 4 % (1-12); Platelet Estimate NORMAL (Normal); RBC Morphology ABNORMAL (Normal); Segmented Neutrophils % 59 % (38-78)
--- NOTE | 2022-07-17 17:11 | Cat Scan Report ---
INDICATION: neck pain s/p fall COMPARISON: Plain film examination dated 02/08/2019 TECHNIQUE: Axial thin section images through the cervical spine. Sagittally and coronally reformatted images. The exam was performed using radiation dose optimization techniques including, but not limited to, automated exposure control, adjustment of the mA and/or kV according to patient size and use of iterative reconstruction technique. FINDINGS: Previous anterior discectomy and spinal fusion at C3-4 and C5-C6. There are disc spacers present. There are anterior fusion plates and screws. Hardware is intact. No cervical vertebral body fracture. No acute spinous process fracture. Incidental note is made of a nonacute fracture of the tip of the C7 spinous process. Mild degenerative disc disease at C2-3. Moderate degenerative disc narrowing at C6-7. There is multilevel degenerative facet arthropathy. There is severe facet arthropathy at C4-5 bilaterally, right worse than left. This causes mild C4-5 anterolisthesis. Temporal bones:Negative. No basilar skull fracture Cervical soft tissues:Negative. No prevertebral soft tissue swelling. No focal soft tissue mass or acute abnormality Lung apices:No pneumothorax. No pulmonary contusion. IMPRESSION: 1. No acute cervical spine fracture 2. Previous anterior discectomy and spinal fusion at C3-4 and C5-6 3. Severe degenerative facet arthropathy at C4-5, right worse than left. Mild anterolisthesis 4. Degenerative disc disease at C2-3 and C6-7 5. Nonacute fracture of the tip of the C7 spinous process 6. No acute abnormality Interpreted and Authenticated by: Angel Bolton 07/17/22
[2022-07-17] MEDS: MELATONIN 3 MG TABLET PO SCH (20:46)
[2022-07-17] MEDS: MIRTAZAPINE 15 MG TABLET PO SCH (20:47)
[2022-07-18] MEDS: 0.9 % SODIUM CHLORIDE 10 ML SYRINGE IV SCH ×3 (05:40→20:43)
[2022-07-18 07:17] LABS: Basophils # (Auto) 0.04 K/mcL (0.00-0.30); Basophils % (Auto) 0.4 % (0.0-2.0); Eosinophils # (Auto) 0.21 K/mcL (0.00-0.70); Eosinophils % (Auto) 2.1 % (0.0-7.0); Hematocrit 38.1 % (40.1-51.0); Hemoglobin 12.2 g/dL (13.7-17.5); Lymphocytes # (Auto) 4.98 K/mcL (1.50-4.80); Lymphocytes % (Auto) 50.6 % (15.5-49.0); Mean Cell Volume 95.7 fL (80.0-100.0); Mean Platelet Volume 9.9 fL (8.8-12.5); Monocytes # (Auto) 0.42 K/mcL (0.10-0.90); Monocytes % (Auto) 4.3 % (1.0-12.0); Neutrophils % (Auto) 42.3 % (38.0-78.0); Platelet Count 191 K/mcL (140-440); RBC 3.98 M/mcL (4.63-6.08); Red Cell Distribution Width 12.9 % (11.5-14.5); WBC 9.8 K/mcL (4.5-11.0)
[2022-07-18 07:33] LABS: ALT/SGPT 9 U/L (<40); AST/SGOT 13 U/L (<40); Albumin 3.2 gm/dL (3.2-5.2); Albumin/Globulin Ratio 1.5 (1.0-2.3); Alkaline Phosphatase 133 U/L (39-117); Bilirubin,Direct < 0.2 mg/dL (0-0.3); Bilirubin,Total 0.3 mg/dL (0.1-1.0); Blood Urea Nitrogen 8 mg/dL (8-23); Carbon Dioxide 29 mmol/L (22-30); Chloride 105 mmol/L (96-108); Globulin 2.2 gm/dL (2.2-3.7); Glomerular Filtration Rate 84; Glucose 85 mg/dL (70-105); Lactate Dehydrogenase 156 U/L (135-225); Phosphorous 3.4 mg/dL (2.5-4.5); Triglycerides 62 mg/dL (<150); Uric Acid 5.5 mg/dL (2.5-8.0)
--- NOTE | 2022-07-18 07:47 | Internal Med Progress Note ---
SUBJECTIVE Subjective Patient information: Note initiated : 07/18/22 at 7:44 am Service Date, if different from initiated Date: [] Patient: Gee Morton 81 y/o M admitted on 07/17/22 for Fall. Chief Complaint: [] Interval history: History of present illness: Mr. Morton is a 81 year old M Presents the ED after falling out of his wheelchair. Patient received laceration to his forehead but refused to come to ED. He has become weaker and less responsive to staff and thus was brought into the ED. History obtained from son from because of patient's altered state. Son stated that the night prior to the fall he was completely normal and is confused at this time. In the ED his vitals were stable and his chemistry was okay but his CBC did show a elevated white blood cell count and his urine was consistent with infection. Per records he was admitted in April for very similar presentation generalized weakness and UTI and he also had a knee fracture at that time. Patient was in the hospital for 3 days. Patient grew out Pseudomonas from his urine culture in March and then E. coli in April. 07/18 Patient feeling better today. Oriented. Sitting up in bed eating breakfast. No particular complaints. CT yesterday showed no neck fracture just degenerative joint disease. Awaiting urine culture. Review of Systems: denies headache/fever/chills/nausea/vomiting/chest or abdominal pain/cough/dyspnea/diarrhea. Otherwise see above. Constitutional Vitals: Vital Signs Temp Pulse Resp BP Pulse Ox O2 Del Method O2 Flow Rate 97.8 F 72 14 135/80 92 1 07/18/22 07:22 07/18/22 07:22 07/18/22 07:22 07/18/22 07:22 07/18/22 07:22 07/18/22 07:22 07/17/22 11:50 Period Temp Pulse Resp BP Sys/Salazar Pulse Ox O2 Del Method O2 Flow Rate Last 24 Hr 97.3 F-98.3 F 67-76 14-22 93-140/55-80 91-100 Nasal Cannula- Room Air 1-1 Intake and Output 07/17/22 07/18/22 07/18/22 21:59 05:59 13:59 Intake Total 1400 240 Output Total 2 Balance 1400 238 Weight 70.76 kg Intake & Output: Intake & Output 07/17/22 07/18/2207/18/22 21:59 05:59 13:59 Intake Total 1400 240 Output Total 2 Balance 1400 238 Weight 70.76 kg Intake: IV 1000 Sodium Chloride 0.9% 1,000 ml @ 1000 100 mls/hr IV .Q10H FRANK Rx#: [id number] Oral 400 240 Output: # of times incontinent of urine 2 Exam: General: Awake, No acute Distress Eyes/N/T: EOMI, Head/Neck: neck supple, CV: RRR, No murmurs, Pulm: Clear b/l, no wheezing/rhonchi/rales Abd: soft, nontender, +BS x4 Ext: no clubbing/cyanosis, b/l LE edema Neuro: A&Ox4, no focal deficits, moves all extremities, Skin: warm/dry OBJ DATA Labs CBC & Chem 7: 07/18/22 05:32 07/18/22 05:32 Labs: Abnormal Lab Results 07/18/22 07/18/22 07/17/22 05:32 05:32 07:56 WBC RBC 3.98 L 4.11 L Hgb 12.2 L 12.9 L Hct 38.1 L POC Hct Lymph % (Auto) 50.6 H Lymph # (Auto) 4.98 H Immature Gran # RBC Morphology Abnormal A Macrocytosis 1+ A Anion Gap 6.0 L Glucose POC Glucose POC WB Ioniz Calcium Alkaline Phosphatase 133 H Total Protein 5.4 L Globulin Urine Appearance Ur Leukocyte Esterase Urine WBC Urine Mucus 07/17/22 07/16/22 07/16/22 07:55 20:35 20:23 WBC RBC Hgb Hct POC Hct 36.0 L Lymph % (Auto) Lymph # (Auto) Immature Gran # RBC Morphology Macrocytosis Anion Gap Glucose 67 L POC Glucose 108 H POC WB Ioniz Calcium 1.12 L Alkaline Phosphatase 141 H Total Protein 5.2 L Globulin 1.8 L Urine Appearance Cloudy A Ur Leukocyte Esterase 500 A Urine WBC > 182 H Urine Mucus Mod A 07/16/22 19:35 WBC 13.6 H RBC 4.34 L Hgb 13.5 L Hct POC Hct Lymph % (Auto) Lymph # (Auto) 4.85 H Immature Gran # 0.07 H RBC Morphology Macrocytosis Anion Gap Glucose POC Glucose POC WB Ioniz Calcium Alkaline Phosphatase Total Protein Globulin Urine Appearance Ur Leukocyte Esterase Urine WBC Urine Mucus Meds: Medications Acetaminophen (Acetaminophen 325 Mg Tablet) 650 mg PO Q6HP PRN; Protocol PRN Reason: Per Pain Protocol/Fever > 101 Hydrocodone Bitart/Acetaminophen (Hydrocodone/Apap 5/325mg Tablet) 1 tab PO Q4HP PRN PRN Reason: Pain Level 3-6 Last Admin: 07/17/22 20:47 Dose: 1 tab Albuterol/Ipratropium (Ipratropium/Albuterol 3 Ml Ampul.Neb) 3 ml NEB Q4HP PRN PRN Reason: Shortness Of Breath Baclofen (Baclofen 10 Mg Tablet) 60 mg PO BID [facility] Last Admin: 07/17/22 20:46 Dose: 60 mg Bisoprolol Fumarate (Bisoprolol 5 Mg Tablet) 2.5 mg PO DAILY [facility] Last Admin: 07/17/22 08:39 Dose: 2.5 mg Cefepime HCl (Cefepime 1 Gm Vial) 1 gm IV Q12H [facility]; Protocol Last Admin: 07/17/22 20:52 Dose: 1 gm Docusate Sodium (Docusate Sodium 100 Mg Capsule) 100 mg PO BID [facility] Last Admin: 07/17/22 20:48 Dose: 100 mg Duloxetine HCl (Duloxetine 30 Mg Capsule) 60 mg PO DAILY [facility] Last Admin: 07/17/22 08:38 Dose: 60 mg Enoxaparin Sodium (Enoxaparin 40 Mg/0.4 Ml Syringe) 40 mg SQ DAILY [facility] Last Admin: 07/17/22 13:59 Dose: 40 mg Gabapentin (Gabapentin 300 Mg Capsule) 600 mg PO TID [facility] Last Admin: 07/17/22 20:45 Dose: 600 mg Potassium Chloride 40 meq/ (Dextrose) 520 mls @ 130 mls/hr IV UD PRN PRN Reason: Potassium < 3 Magnesium Sulfate (Magnesium Sulfate) 2 gm in 50 mls @ 50 mls/hr IV UD PRN PRN Reason: Magnesium </= 1.6 Lamotrigine (Lamotrigine 25 Mg Tablet) 25 mg PO QDAY [facility] Last Admin: 07/17/22 08:49 Dose: 25 mg Lamotrigine (Lamotrigine 100 Mg Tablet) 100 mg PO DAILY [facility] Last Admin: 07/17/22 08:49 Dose: 100 mg Lidocaine (Lidocaine Patch) 1 patch TOPICAL QDAY PRN PRN Reason: Pain Melatonin (Melatonin 3 Mg Tablet) 3 mg PO HS [facility] Last Admin: 07/17/22 20:46 Dose: 3 mg Mirtazapine (Mirtazapine 15 Mg Tablet) 7.5 mg PO QPM [facility] Last Admin: 07/17/22 20:47 Dose: 7.5 mg Ondansetron HCl (Ondansetron 4 Mg/2 Ml Vial) 4 mg IV Q4-6HP PRN PRN Reason: Nausea And Vomiting Ondansetron HCl (Ondansetron 4 Mg/2 Ml Vial) 4 mg IV Q4HP PRN PRN Reason: Nausea And Vomiting Polyethylene Glycol (Polyethylene Glycol 3350 17 Gm Packet) 17 gm PO DAILYP PRN PRN Reason: Constipation Potassium Chloride (Potassium Chloride 20 Meq Tablet) 40 meq PO UD PRN PRN Reason: Potssium is 3-3.5 Potassium Chloride (Potassium Chloride 20 Meq Tablet) 40 meq PO UD PRN PRN Reason: Potassium < 3 Ropinirole HCl (Ropinirole 0.25 Mg Tablet) 0.25 mg PO TID [facility] Last Admin: 07/17/22 20:45 Dose: 0.25 mg Senna (Sennosides 1 Tablet) 2 tab PO DAILYP PRN PRN Reason: Constipation Sodium Chloride (0.9 % Sodium Chloride 10 Ml Syringe) 10 ml IV Q8 [facility] Last Admin: 07/18/22 05:40 Dose: Not Given Tizanidine HCl (Tizanidine 4 Mg Tablet) 2 mg PO Q6HP PRN PRN Reason: Spasms A/P Narrative A/P Narrative: A: *Generalized weakness/deconditioning/Falling: *Concussion prior to admit while at outside facility: *UTI(h/o pseudomonas): *Encephalopathy: 2/2 above, improved *Sepsis: 2/2 above -Leukocytosis resolved *Volume depletion: improved *HTN: *Depression: *Chronic pain & Neuropathy: P: -Cefepime pending UC -PT/OT -cont home BB, baclofen, lamictal -CM for placement needs -ppx: lovenox DNR Time Spent With Patient Time: Total time spent is greater than 50% in coordination of care (as documented) at patient's floor/unit and/or counseling patient: Total time spent with greater than 50% in coordination of care (as documented) at patient's floor/unit and/or counseling patient:: 25 - 35 minutes QUALITY VTE Deep Vein Thrombosis/Pulmonary Embolism Present on Admission: No
[2022-07-18] MEDS: BISOPROLOL 5 MG TABLET PO SCH (08:02)
[2022-07-18] MEDS: rOPINIRole 0.25 MG TABLET PO SCH ×3 (08:02→20:43)
[2022-07-18] MEDS: DOCUSATE SODIUM 100 MG CAPSULE PO SCH ×2 (08:03→20:43)
[2022-07-18] MEDS: GABAPENTIN 300 MG CAPSULE PO SCH ×3 (08:03→20:43)
[2022-07-18] MEDS: DULoxetine 30 MG CAPSULE PO SCH (08:03)
[2022-07-18] MEDS: BACLOFEN 10 MG TABLET PO SCH ×2 (08:04→20:43)
[2022-07-18] MEDS: lamoTRIgine 100 MG TABLET PO SCH (08:04)
[2022-07-18] MEDS: lamoTRIgine 25 MG TABLET PO SCH (08:05)
[2022-07-18] MEDS: HYDROcodone/APAP 5/325MG TABLET PO PRN ×2 (08:06→20:42)
[2022-07-18] MEDS: ENOXAPARIN 40 MG/0.4 ML SYRINGE SQ SCH (08:07)
[2022-07-18] MEDS: CEFEPIME 1 GM VIAL IV SCH ×2 (08:07→20:44)
--- NOTE | 2022-07-18 12:56 | Discharge Summary ---
Discharge Provider Provider IMPORTANT FOLLOW-UP INFORMATION FOR PCP: Patient information: Note initiated : 07/18/22 at 12:55 pm Service Date, if different from initiated Date: [] Patient: Gee Morton 81 y/o M admitted on 07/17/22 for Fall. Chief Complaint: [] Date of admission: 07/17/22 16:30 Discharge date: 07/20/22 Primary care physician: Angel Goff DO Consults: 07/16/22 Consult to Physician [CONS] Stat Comment: Consulting Provider: Jeffery Jeffers Reason For Exam: Physician to Consult COURSE Hospital Course Hospital course: History of present illness: Mr. Morton is a 81 year old M Presents the ED after falling out of his wheelchair. Patient received laceration to his forehead but refused to come to ED. He has become weaker and less responsive to staff and thus was brought into the ED. History obtained from son from because of patient's altered state. Son stated that the night prior to the fall he was completely normal and is confused at this time. In the ED his vitals were stable and his chemistry was okay but his CBC did show a elevated white blood cell count and his urine was consistent with infection. Per records he was admitted in April for very similar presentation generalized weakness and UTI and he also had a knee fracture at that time. Patient was in the hospital for 3 days. Patient grew out Pseudomonas from his urine culture in March and then E. coli in April. 07/18 Patient feeling better today. Oriented. Sitting up in bed eating breakfast. No particular complaints. CT yesterday showed no neck fracture just degenerat red joint disease. Awaiting urine culture. 07/19 Patient little drowsy morning states he only slept 3 to 4 hours last night. Otherwise no new complaints. Urine culture coming back Pseudomonas, not susceptible to ciprofloxacin. 07/20 No overnight event or new complaints. Patient did not seem to have a little bit of sundowning like behavior yesterday early evening. But no issues for the rest the night. A: *Generalized weakness/deconditioning/Falling: *Concussion prior to admit while at outside facility: *UTI(pseudomonas): *Encephalopathy: 2/2 above, improved *Sepsis: 2/2 above *Volume depletion: improved *HTN: *Depression: *Chronic pain & Neuropathy: P: -Cefepime to complete 7-day course Discharge diagnosis: Generalized weakness deconditioning following concussion UTI encephalopathy Secondary discharge diagnosis: Sepsis volume depletion hypertension depression chronic pain and neuropathy Time Spent with Patient Time attestation: Total time spent providing and/or coordinating discharge services: Time spent: Greater than 30 minutes EXAM Constitutional Vitals: Temp Pulse Resp BP Pulse Ox O2 Del Method O2 Flow Rate 98 F 76 16 132/77 93 1 07/18/22 11:34 07/18/22 11:34 07/18/22 11:34 07/18/22 11:34 07/18/22 11:34 07/18/22 11:34 07/17/22 11:50 Discharge Data Data Completed and Pending Labs on day of discharge: Labs from last 24 hours 07/18/22 07/18/22 07/17/22 05:32 05:32 07:56 WBC 9.8 11.0 RBC 3.98 L 4.11 L Hgb 12.2 L 12.9 L Hct 38.1 L 40.6 MCV 95.7 98.8 MCH 30.7 31.4 MCHC 32.0 31.8 RDW 12.9 12.9 Plt Count 191 218 MPV 9.9 10.1 Immature Gran % (Auto) 0.3 Neut % (Auto) 42.3 Lymph % (Auto) 50.6 H [place] % (Auto) 4.3 Eos % (Auto) 2.1 Baso % (Auto) 0.4 Lymph # (Auto) 4.98 H [place] # (Auto) 0.42 Eos # (Auto) 0.21 Baso # (Auto) 0.04 Seg Neutrophils % 59 Lymphocytes % 33 Monocytes % (Manual) 4 Eosinophils % (Manual) 4 Immature Gran # 0.03 Absolute Neutrophils 4.16 Differential Comment Platelet Estimate Normal RBC Morphology Abnormal A Macrocytosis 1+ A Sodium 140 Potassium 3.9 Chloride 105 Carbon Dioxide 29 Anion Gap 6.0 L BUN 8 Creatinine 0.8 GFR Calculation 84 Glucose 85 Uric Acid 5.5 Calcium 9.0 Phosphorus 3.4 Magnesium 2.0 Total Bilirubin 0.3 Direct Bilirubin < 0.2 GGT 18 AST 13 ALT 9 Alkaline Phosphatase 133 H Lactate Dehydrogenase 156 Total Protein 5.4 L Albumin 3.2 Globulin 2.2 Albumin/Globulin Ratio 1.5 Triglycerides 62 07/17/22 07:55 WBC RBC Hgb Hct MCV MCH MCHC RDW Plt Count MPV Immature Gran % (Auto) Neut % (Auto) Lymph % (Auto) [place] % (Auto) Eos % (Auto) Baso % (Auto) Lymph # (Auto) [place] # (Auto) Eos # (Auto) Baso # (Auto) Seg Neutrophils % Lymphocytes % Monocytes % (Manual) Eosinophils % (Manual) Immature Gran # Absolute Neutrophils Differential Comment Platelet Estimate RBC Morphology Macrocytosis Sodium 140 Potassium 4.4 Chloride 102 Carbon Dioxide 28 Anion Gap 10.0 BUN 11 Creatinine 0.7 GFR Calculation 89 Glucose 67 L Uric Acid 5.3 Calcium 8.9 Phosphorus 3.4 Magnesium 2.2 Total Bilirubin 0.3 Direct Bilirubin < 0.2 GGT 17 AST 14 ALT 9 Alkaline Phosphatase 141 H Lactate Dehydrogenase 202 Total Protein 5.2 L Albumin 3.4 Globulin 1.8 L Albumin/Globulin Ratio 1.9 Triglycerides 55 Discharge Plan Patient/Caregiver Discharge Instructions Activity: increase activity as tolerated Diet: Regular Diet Instructions: Cefepime (By injection), Reading Comprehension Disorder in Children (GEN) Activity Restrictions/Additional Instructions: Resume home diet as tolerated. Take all meals up in chair, sitting at 90 degrees, to prevent aspiration. Increase activity as tolerated. Continue fall precautions. Take all medication as directed. Return to ER for fever, chills, uncontrolled pain, inability to urinate or have a bowel movement, nausea and/or vomiting, swelling, redness, signs of infection, shortness of breath, chest pain, return of symptoms, or other acute symptom. This discharge packet is provided to you to help keep you informed about your care. We want to ensure you get everything you need when you go home. You will also be receiving a call from us in a few days to follow up with you and see how you are doing since your discharge. This gives us a chance to listen to any concerns you maybe experiencing since you were discharged or any additional needs you may have, as well as providing us feedback on your care experience. We strive to always provide excellent care and thank you for your feedback and for choosing [facility]. Prescriptions: New cefepime 2 gram recon soln 2 g IV Q12H Qty: 9 0RF Continued calcium carbonate [Calcium 600] 500 mg PO DAILY gabapentin 300 mg capsule 600 mg PO TID Multivitamin 50 Plus Tablet 1 tab PO QDAY ascorbic acid (vitamin C) 1,000 mg tablet 1,000 mg PO QDAY duloxetine 60 MG capsule,delayed release(DR/EC) 60 mg PO DAILY bisoprolol fumarate 5 MG tablet 2.5 mg PO DAILY lamotrigine 25 mg tablet 1 tab PO QDAY lamotrigine 100 mg tablet 1 tab PO DAILY cholecalciferol (vitamin D3) 10 mcg (400 unit) Capsule 10 mcg PO QDAY Rx Instructions: 1 capsule every other day. albuterol 90 mcg/actuation Aerosol 1 mcg INHALATION DAILY tizanidine 2 mg Capsule 2 mg PO Q6HP PRN (Reason: Spasms) silver sulfadiazine [Silvadene] 1 % Cream 1 applic TOPICAL QDAY Rx Instructions: apply to L foot great toe and left ankle daily for ongoing abrasion lidocaine [Blue-Emu Lidocaine Patch] 4 % Adhesive Patch,Medicated 1 patch TOPICAL QDAY PRN (Reason: Pain) ropinirole 0.25 mg Tablet 0.25 mg PO TID mirtazapine 7.5 mg Tablet 7.5 mg PO QPM melatonin 5 mg Tablet 5 mg PO HS baclofen 20 mg tablet 60 mg PO BID Changed hydrocodone-acetaminophen 5-325 mg Tablet 1 tab PO Q6HP PRN (Reason: Pain Level 3-6) Qty: 10 0RF Other Ambulatory Orders: OT Discharge Order (Routine) Location: None Selected Ordered By: Jeffery Jeffers Physical Therapy at Discharge - General (Routine) Location: None Selected Ordered By: Jeffery Jeffers Follow Up Plan Follow up with: Angel Goff DO [Primary Care Provider] - (Follow-up as needed. Contact the office to schedule) Patient Disposition: Xfer SNF Prognosis: Fair Rehab Potential: Fair I certify that the patient requires SNF services: Yes Overall status at discharge: patient is progressing back to baseline Discharge Orders: Discharge Order (Routine); Ordered 07/20/22 Ordered By: Jeffery Jeffers QUALITY VTE Deep Vein Thrombosis/Pulmonary Embolism Present on Admission: No
[2022-07-18] MEDS: MELATONIN 3 MG TABLET PO SCH (20:43)
[2022-07-18] MEDS: MIRTAZAPINE 15 MG TABLET PO SCH (20:43)
[2022-07-19] MEDS: 0.9 % SODIUM CHLORIDE 10 ML SYRINGE IV SCH ×3 (05:38→22:36)
[2022-07-19] MEDS: ENOXAPARIN 40 MG/0.4 ML SYRINGE SQ SCH (09:37)
[2022-07-19] MEDS: CEFEPIME 1 GM VIAL IV SCH (09:38)
[2022-07-19] MEDS: BACLOFEN 10 MG TABLET PO SCH ×4 (09:38→22:35)
[2022-07-19] MEDS: DULoxetine 30 MG CAPSULE PO SCH (09:39)
[2022-07-19] MEDS: GABAPENTIN 300 MG CAPSULE PO SCH ×3 (09:39→22:35)
[2022-07-19] MEDS: BISOPROLOL 5 MG TABLET PO SCH (09:39)
[2022-07-19] MEDS: DOCUSATE SODIUM 100 MG CAPSULE PO SCH ×2 (09:40→22:35)
[2022-07-19] MEDS: lamoTRIgine 100 MG TABLET PO SCH (09:40)
[2022-07-19] MEDS: lamoTRIgine 25 MG TABLET PO SCH (09:40)
[2022-07-19] MEDS: rOPINIRole 0.25 MG TABLET PO SCH ×3 (09:40→22:35)
--- NOTE | 2022-07-19 10:55 | Internal Med Progress Note ---
SUBJECTIVE Subjective Patient information: Note initiated : 07/19/22 at 10:52 am Service Date, if different from initiated Date: [] Patient: Gee Morton 81 y/o M admitted on 07/17/22 for Fall. Chief Complaint: [] Interval history: History of present illness: Mr. Morton is a 81 year old M Presents the ED after falling out of his wheelchair. Patient received laceration to his forehead but refused to come to ED. He has become weaker and less responsive to staff and thus was brought into the ED. History obtained from son from because of patient's altered state. Son stated that the night prior to the fall he was completely normal and is confused at this time. In the ED his vitals were stable and his chemistry was okay but his CBC did show a elevated white blood cell count and his urine was consistent with infection. Per records he was admitted in April for very similar presentation generalized weakness and UTI and he also had a knee fracture at that time. Patient was in the hospital for 3 days. Patient grew out Pseudomonas from his urine culture in March and then E. coli in April. 07/18 Patient feeling better today. Oriented. Sitting up in bed eating breakfast. No particular complaints. CT yesterday showed no neck fracture just degenerative joint disease. Awaiting urine culture. 07/19 Patient little drowsy morning states he only slept 3 to 4 hours last night. Otherwise no new complaints. Urine culture coming back Pseudomonas, not susceptible to ciprofloxacin. Review of Systems: denies headache/fever/chills/nausea/vomiting/chest or abdominal pain/cough/dyspnea/diarrhea. Otherwise see above. Constitutional Vitals: Vital Signs Temp Pulse Resp BP Pulse Ox O2 Del Method O2 Flow Rate 97.3 F 85 14 120/73 95 1 07/19/22 08:00 07/19/22 08:00 07/19/22 03:35 07/19/22 08:00 07/19/22 08:00 07/19/22 08:00 07/17/22 11:50 Period Temp Pulse Resp BP Sys/Salazar Pulse Ox O2 Del Method O2 Flow Rate Last 24 Hr 97.3 F-98.7 F 61-85 14-16 90-132/54-81 93-97 Room Air-Room Air Intake and Output 07/18/22 07/19/22 07/19/22 21:59 05:59 13:59 Intake Total 1020 480 Output Total 3 2 1 Balance 1017 -2 479 Weight 80.966 kg Intake & Output: Intake & Output 07/18/22 07/19/22 07/19/22 21:59 05:59 13:59 Intake Total 1020 480 Output Total 3 2 1 Balance 1017 -2 479 Weight 80.966 kg Intake: Oral 1020 480 Output: # of times incontinent of urine 3 2 1 Other: Meal Dinner Percent of Meal Consumed 100% Feeding Ability Assist with Tray Set Up Urine Odor Normal Normal Exam: General: Awake, No acute Distress Eyes/N/T: EOMI, Head/Neck: neck supple, CV: RRR, No murmurs, Pulm: Clear b/l, no wheezing/rhonchi/rales Abd: soft, nontender, +BS x4 Ext: no clubbing/cyanosis, b/l LE edema Neuro: A&Ox4, no focal deficits, moves all extremities, Skin: warm/dry OBJ DATA Labs CBC & Chem 7: 07/18/22 05:32 07/18/22 05:32 Labs: Abnormal Lab Results 07/18/22 07/18/22 07/17/22 05:32 05:32 07:56 WBC RBC 3.98 L 4.11 L Hgb 12.2 L 12.9 L Hct 38.1 L POC Hct Lymph % (Auto) 50.6 H Lymph # (Auto) 4.98 H Immature Gran # RBC Morphology Abnormal A Macrocytosis 1+ A Anion Gap 6.0 L Glucose POC Glucose POC WB Ioniz Calcium Alkaline Phosphatase 133 H Total Protein 5.4 L Globulin Urine Appearance Ur Leukocyte Esterase Urine WBC Urine Mucus 07/17/22 07/16/22 07/16/22 07:55 20:35 20:23 WBC RBC Hgb Hct POC Hct 36.0 L Lymph % (Auto) Lymph # (Auto) Immature Gran # RBC Morphology Macrocytosis Anion Gap Glucose 67 L POC Glucose 108 H POC WB Ioniz Calcium 1.12 L Alkaline Phosphatase 141 H Total Protein 5.2 L Globulin 1.8 L Urine Appearance Cloudy A Ur Leukocyte Esterase 500 A Urine WBC > 182 H Urine Mucus Mod A 07/16/22 19:35 WBC 13.6 H RBC 4.34 L Hgb 13.5 L Hct POC Hct Lymph % (Auto) Lymph # (Auto) 4.85 H Immature Gran # 0.07 H RBC Morphology Macrocytosis Anion Gap Glucose POC Glucose POC WB Ioniz Calcium Alkaline Phosphatase Total Protein Globulin Urine Appearance Ur Leukocyte Esterase Urine WBC Urine Mucus Meds: Medications Acetaminophen (Acetaminophen 325 Mg Tablet) 650 mg PO Q6HP PRN; Protocol PRN Reason: Per Pain Protocol/Fever > 101 Hydrocodone Bitart/Acetaminophen (Hydrocodone/Apap 5/325mg Tablet) 1 tab PO Q4HP PRN PRN Reason: Pain Level 3-6 Last Admin: 07/18/22 20:42 Dose: 1 tab Albuterol/Ipratropium (Ipratropium/Albuterol 3 Ml Ampul.Neb) 3 ml NEB Q4HP PRN PRN Reason: Shortness Of Breath Baclofen (Baclofen 10 Mg Tablet) 60 mg PO BID [facility] Last Admin: 07/19/22 10:23 Dose: 60 mg Bisoprolol Fumarate (Bisoprolol 5 Mg Tablet) 2.5 mg PO DAILY [facility] Last Admin: 07/19/22 09:39 Dose: 2.5 mg Cefepime HCl (Cefepime 1 Gm Vial) 1 gm IV Q12H [facility]; Protocol Last Admin: 07/19/22 09:38 Dose: 1 gm Docusate Sodium (Docusate Sodium 100 Mg Capsule) 100 mg PO BID [facility] Last Admin: 07/19/22 09:40 Dose: 100 mg Duloxetine HCl (Duloxetine 30 Mg Capsule) 60 mg PO DAILY [facility] Last Admin: 07/19/22 09:39 Dose: 60 mg Enoxaparin Sodium (Enoxaparin 40 Mg/0.4 Ml Syringe) 40 mg SQ DAILY [facility] Last Admin: 07/19/22 09:37 Dose: 40 mg Gabapentin (Gabapentin 300 Mg Capsule) 600 mg PO TID [facility] Last Admin: 07/19/22 09:39 Dose: 600 mg Potassium Chloride 40 meq/ (Dextrose) 520 mls @ 130 mls/hr IV UD PRN PRN Reason: Potassium < 3 Magnesium Sulfate (Magnesium Sulfate) 2 gm in 50 mls @ 50 mls/hr IV UD PRN PRN Reason: Magnesium </= 1.6 Lamotrigine (Lamotrigine 25 Mg Tablet) 25 mg PO QDAY [facility] Last Admin: 07/19/22 09:40 Dose: 25 mg Lamotrigine (Lamotrigine 100 Mg Tablet) 100 mg PO DAILY [facility] Last Admin: 07/19/22 09:40 Dose: 100 mg Lidocaine (Lidocaine Patch) 1 patch TOPICAL QDAY PRN PRN Reason: Pain Melatonin (Melatonin 3 Mg Tablet) 3 mg PO HS [facility] Last Admin: 07/18/22 20:43 Dose: 3 mg Mirtazapine (Mirtazapine 15 Mg Tablet) 7.5 mg PO QPM [facility] Last Admin: 07/18/22 20:43 Dose: 7.5 mg Ondansetron HCl (Ondansetron 4 Mg/2 Ml Vial) 4 mg IV Q4-6HP PRN PRN Reason: Nausea And Vomiting Ondansetron HCl (Ondansetron 4 Mg/2 Ml Vial) 4 mg IV Q4HP PRN PRN Reason: Nausea And Vomiting Polyethylene Glycol (Polyethylene Glycol 3350 17 Gm Packet) 17 gm PO DAILYP PRN PRN Reason: Constipation Potassium Chloride (Potassium Chloride 20 Meq Tablet) 40 meq PO UD PRN PRN Reason: Potssium is 3-3.5 Potassium Chloride (Potassium Chloride 20 Meq Tablet) 40 meq PO UD PRN PRN Reason: Potassium < 3 Ropinirole HCl (Ropinirole 0.25 Mg Tablet) 0.25 mg PO TID [facility] Last Admin: 07/19/22 09:40 Dose: 0.25 mg Senna (Sennosides 1 Tablet) 2 tab PO DAILYP PRN PRN Reason: Constipation Sodium Chloride (0.9 % Sodium Chloride 10 Ml Syringe) 10 ml IV Q8 [facility] Last Admin: 07/19/22 05:38 Dose: Not Given Tizanidine HCl (Tizanidine 4 Mg Tablet) 2 mg PO Q6HP PRN PRN Reason: Spasms A/P Narrative A/P Narrative: A: *Generalized weakness/deconditioning/Falling: *Concussion prior to admit while at outside facility: *UTI(pseudomonas): *Encephalopathy: 2/2 above, improved *Sepsis: 2/2 above -Leukocytosis resolved *Volume depletion: improved *HTN: *Depression: *Chronic pain & Neuropathy: P: -Cefepime for 7-days -PT/OT -cont home BB, baclofen, lamictal -CM for placement needs -ppx: lovenox DNR Time Spent With Patient Time: Total time spent is greater than 50% in coordination of care (as documented) at patient's floor/unit and/or counseling patient: QUALITY VTE Deep Vein Thrombosis/Pulmonary Embolism Present on Admission: No
[2022-07-19] MEDS ORDERED: CEFEPIME 1 GM VIAL IV ONE (11:00)
[2022-07-19] MEDS ORDERED: POLYETHYLENE GLYCOL 3350 17 GM PACKET PO ONE (12:25)
[2022-07-19] MEDS ORDERED: hydrOXYzine 25 MG TABLET PO ONE (16:08)
[2022-07-19] MEDS: MIRTAZAPINE 15 MG TABLET PO SCH (22:35)
[2022-07-19] MEDS: MELATONIN 3 MG TABLET PO SCH (22:35)
[2022-07-19] MEDS: CEFEPIME 2 GM VIAL IV SCH (22:41)
[2022-07-19] MEDS: HYDROcodone/APAP 5/325MG TABLET PO PRN (22:53)
[2022-07-20] MEDS: 0.9 % SODIUM CHLORIDE 10 ML SYRINGE IV SCH ×2 (05:41→08:59)
[2022-07-20] MEDS: BACLOFEN 10 MG TABLET PO SCH (08:57)
[2022-07-20] MEDS: CEFEPIME 2 GM VIAL IV SCH (08:57)
[2022-07-20] MEDS: ENOXAPARIN 40 MG/0.4 ML SYRINGE SQ SCH (08:57)
[2022-07-20] MEDS: GABAPENTIN 300 MG CAPSULE PO SCH (08:58)
[2022-07-20] MEDS: rOPINIRole 0.25 MG TABLET PO SCH (08:58)
[2022-07-20] MEDS: BISOPROLOL 5 MG TABLET PO SCH (08:58)
[2022-07-20] MEDS: DULoxetine 30 MG CAPSULE PO SCH ×2 (08:58→09:11)
[2022-07-20] MEDS: lamoTRIgine 25 MG TABLET PO SCH (08:59)
[2022-07-20] MEDS: DOCUSATE SODIUM 100 MG CAPSULE PO SCH (08:59)
[2022-07-20] MEDS: lamoTRIgine 100 MG TABLET PO SCH (08:59)
--- NOTE | 2022-07-20 10:01 | Internal Med Progress Note ---
SUBJECTIVE Subjective Patient information: Note initiated : 07/20/22 at 9:59 am Service Date, if different from initiated Date: [] Patient: Gee Morton 81 y/o M admitted on 07/17/22 for Fall. Chief Complaint: [] Interval history: History of present illness: Mr. Morton is a 81 year old M Presents the ED after falling out of his wheelchair. Patient received laceration to his forehead but refused to come to ED. He has become weaker and less responsive to staff and thus was brought into the ED. History obtained from son from because of patient's altered state. Son stated that the night prior to the fall he was completely normal and is confused at this time. In the ED his vitals were stable and his chemistry was okay but his CBC did show a elevated white blood cell count and his urine was consistent with infection. Per records he was admitted in April for very similar presentation generalized weakness and UTI and he also had a knee fracture at that time. Patient was in the hospital for 3 days. Patient grew out Pseudomonas from his urine culture in March and then E. coli in April. 07/18 Patient feeling better today. Oriented. Sitting up in bed eating breakfast. No particular complaints. CT yesterday showed no neck fracture just degenerative joint disease. Awaiting urine culture. 07/19 Patient little drowsy morning states he only slept 3 to 4 hours last night. Otherwise no new complaints. Urine culture coming back Pseudomonas, not susceptible to ciprofloxacin. 07/20 No overnight event or new complaints. Patient did not seem to have a little bit of sundowning like behavior yesterday early evening. But no issues for the rest the night. Review of Systems: denies headache/fever/chills/nausea/vomiting/chest or abdominal pain/cough/dyspnea/diarrhea. Otherwise see above. Constitutional Vitals: Vital Signs Temp Pulse Resp BP Pulse Ox O2 Del Method O2 Flow Rate 97.6 F 80 18 104/79 92 1 07/20/22 08:00 07/20/22 08:00 07/20/22 08:00 07/20/22 08:00 07/20/22 08:00 07/20/22 08:00 07/17/22 11:50 Period Temp Pulse Resp BP Sys/Salazar Pulse Ox O2 Del Method O2 Flow Rate Last 24 Hr 97.6 F-99.5 F 64-97 16-20 98-119/58-79 92-97 Room Air-Room Air Intake and Output 07/19/22 07/20/22 07/20/22 21:59 05:59 13:59 Intake Total 1620 360 Output Total 2 3 Balance 1618 357 Weight 81.647 kg Intake & Output: Intake & Output 07/19/22 07/20/22 07/20/22 21:59 05:59 13:59 Intake Total 1620 360 Output Total 2 3 Balance 1618 357 Weight 81.647 kg Intake: Oral 1620 360 Output: # of times incontinent of urine 2 3 Other: Meal Lunch Percent of Meal Consumed 50% Feeding Ability Assist with Tray Set Up Urine Color Yellow Urine Odor Normal Stool Size Large Stool Color Brown Stool Consistency Soft # Voids 1 1 Exam: General: Awake, No acute Distress Eyes/N/T: EOMI, Head/Neck: neck supple, CV: RRR, No murmurs, Pulm: Clear b/l, no wheezing/rhonchi/rales Abd: soft, nontender, +BS x4 Ext: no clubbing/cyanosis, b/l LE edema Neuro: Alert, no focal deficits, moves all extremities, Skin: warm/dry OBJ DATA Labs CBC & Chem 7: 07/18/22 05:32 07/18/22 05:32 Labs: Abnormal Lab Results 07/18/22 07/18/22 07/17/22 05:32 05:32 07:56 RBC 3.98 L 4.11 L Hgb 12.2 L 12.9 L Hct 38.1 L Lymph % (Auto) 50.6 H Lymph # (Auto) 4.98 H RBC Morphology Abnormal A Macrocytosis 1+ A Anion Gap 6.0 L Glucose Alkaline Phosphatase 133 H Total Protein 5.4 L Globulin 07/17/22 07:55 RBC Hgb Hct Lymph % (Auto) Lymph # (Auto) RBC Morphology Macrocytosis Anion Gap Glucose 67 L Alkaline Phosphatase 141 H Total Protein 5.2 L Globulin 1.8 L Meds: Medications Acetaminophen (Acetaminophen 325 Mg Tablet) 650 mg PO Q6HP PRN; Protocol PRN Reason: Per Pain Protocol/Fever > 101 Hydrocodone Bitart/Acetaminophen (Hydrocodone/Apap 5/325mg Tablet) 1 tab PO Q4HP PRN PRN Reason: Pain Level 3-6 Last Admin: 07/19/22 22:53 Dose: 1 tab Albuterol/Ipratropium (Ipratropium/Albuterol 3 Ml Ampul.Neb) 3 ml NEB Q4HP PRN PRN Reason: Shortness Of Breath Baclofen (Baclofen 10 Mg Tablet) 60 mg PO BID [facility] Last Admin: 07/20/22 08:57 Dose: 60 mg Bisoprolol Fumarate (Bisoprolol 5 Mg Tablet) 2.5 mg PO DAILY [facility] Last Admin: 07/20/22 08:58 Dose: 2.5 mg Cefepime HCl (Cefepime 2 Gm Vial) 2 gm IV Q12H [facility]; Protocol Last Admin: 07/20/22 08:57 Dose: 2 gm Docusate Sodium (Docusate Sodium 100 Mg Capsule) 100 mg PO BID [facility] Last Admin: 07/20/22 08:59 Dose: 100 mg Duloxetine HCl (Duloxetine 30 Mg Capsule) 60 mg PO DAILY [facility] Last Admin: 07/20/22 09:11 Dose: Not Given Enoxaparin Sodium (Enoxaparin 40 Mg/0.4 Ml Syringe) 40 mg SQ DAILY [facility] Last Admin: 07/20/22 08:57 Dose: 40 mg Gabapentin (Gabapentin 300 Mg Capsule) 600 mg PO TID [facility] Last Admin: 07/20/22 08:58 Dose: 600 mg Potassium Chloride 40 meq/ (Dextrose) 520 mls @ 130 mls/hr IV UD PRN PRN Reason: Potassium < 3 Magnesium Sulfate (Magnesium Sulfate) 2 gm in 50 mls @ 50 mls/hr IV UD PRN PRN Reason: Magnesium </= 1.6 Lamotrigine (Lamotrigine 25 Mg Tablet) 25 mg PO QDAY [facility] Last Admin: 07/20/22 08:59 Dose: 25 mg Lamotrigine (Lamotrigine 100 Mg Tablet) 100 mg PO DAILY [facility] Last Admin: 07/20/22 08:59 Dose: 100 mg Lidocaine (Lidocaine Patch) 1 patch TOPICAL QDAY PRN PRN Reason: Pain Melatonin (Melatonin 3 Mg Tablet) 3 mg PO HS [facility] Last Admin: 07/19/22 22:35 Dose: 3 mg Mirtazapine (Mirtazapine 15 Mg Tablet) 7.5 mg PO QPM [facility] Last Admin: 07/19/22 22:35 Dose: 7.5 mg Ondansetron HCl (Ondansetron 4 Mg/2 Ml Vial) 4 mg IV Q4-6HP PRN PRN Reason: Nausea And Vomiting Ondansetron HCl (Ondansetron 4 Mg/2 Ml Vial) 4 mg IV Q4HP PRN PRN Reason: Nausea And Vomiting Polyethylene Glycol (Polyethylene Glycol 3350 17 Gm Packet) 17 gm PO DAILYP PRN PRN Reason: Constipation Potassium Chloride (Potassium Chloride 20 Meq Tablet) 40 meq PO UD PRN PRN Reason: Potssium is 3-3.5 Potassium Chloride (Potassium Chloride 20 Meq Tablet) 40 meq PO UD PRN PRN Reason: Potassium < 3 Ropinirole HCl (Ropinirole 0.25 Mg Tablet) 0.25 mg PO TID [facility] Last Admin: 07/20/22 08:58 Dose: 0.25 mg Senna (Sennosides 1 Tablet) 2 tab PO DAILYP PRN PRN Reason: Constipation Sodium Chloride (0.9 % Sodium Chloride 10 Ml Syringe) 10 ml IV Q8 [facility] Last Admin: 07/20/22 08:59 Dose: 10 ml Tizanidine HCl (Tizanidine 4 Mg Tablet) 2 mg PO Q6HP PRN PRN Reason: Spasms A/P Narrative A/P Narrative: A: *Generalized weakness/deconditioning/Falling: *Concussion prior to admit while at outside facility: *UTI(pseudomonas): *Encephalopathy: 2/2 above, improved *Sepsis: 2/2 above -Leukocytosis resolved *Volume depletion: improved *HTN: *Depression: *Chronic pain & Neuropathy: P: -Cefepime for 7-days -PT/OT -cont home BB, baclofen, lamictal -CM for placement needs -ppx: lovenox DNR Time Spent With Patient Time: Total time spent is greater than 50% in coordination of care (as documented) at patient's floor/unit and/or counseling patient: QUALITY VTE Deep Vein Thrombosis/Pulmonary Embolism Present on Admission: No
== END 2022-07-20 13:40 | DRG 871 ==
LOC: MEDSUR 19:10 → ED 19:10 → MEDSUR 07-17 01:15
PROVIDERS: ADMIT Internal Medicine; ATTEND Internal Medicine

== ENCOUNTER 2023-05-23 19:05 | Inpatient (IN) ==
[2023-05-23] MEDS ORDERED: 0.9 % SODIUM CHLORIDE 1,000 ML IV SCH ×2 (19:45→23:45)
[2023-05-23] MEDS ORDERED: morphine 4 MG/ML VIAL IV ONE (20:15)
[2023-05-23 20:23] LABS: POC INR 1.1 (0.8-1.2); POC Pro Time 12.6 (11.9-14.5)
[2023-05-23 21:01] LABS: Basophils # (Auto) 0.02 K/mcL (0.00-0.30); Basophils % (Auto) 0.2 % (0.0-2.0); Eosinophils # (Auto) 0.17 K/mcL (0.00-0.70); Eosinophils % (Auto) 2.1 % (0.0-7.0); Hematocrit 42.6 % (40.1-51.0); Lymphocytes % (Auto) 47.4 % (15.5-49.0); Mean Cell Volume 97.9 fL (80.0-100.0); Mean Corpuscular HGB Conc 32.9 g/dL (31.0-36.0); Mean Platelet Volume 10.5 fL (8.8-12.5); Monocytes # (Auto) 0.49 K/mcL (0.10-0.90); Neutrophils % (Auto) 44.1 % (38.0-78.0); Platelet Count 183 K/mcL (140-440); RBC 4.35 M/mcL (4.63-6.08); Red Cell Distribution Width 12.6 % (11.5-14.5); WBC 8.2 K/mcL (4.5-11.0)
[2023-05-23 21:16] LABS: Alcohol, Blood < 10.0 mg/dL; Alcohol,Blood < 0.010 gm/dL (<0.010)
[2023-05-23 21:20] LABS: Acetaminophen < 5.0 ug/mL; Salicylate < 0.3 mg/dL
[2023-05-23 21:22] LABS: ALT/SGPT 8 U/L (<40); AST/SGOT 13 U/L (<40); Albumin/Globulin Ratio 1.9 (1.0-2.3); Alkaline Phosphatase 76 U/L (39-117); Bilirubin,Total 0.6 mg/dL (0.1-1.0); Blood Urea Nitrogen 15 mg/dL (8-23); Calcium 9.8 mg/dL (8.6-10.4); Carbon Dioxide 28 mmol/L (22-30); Chloride 102 mmol/L (96-108); Creatine Kinase 108 U/L (24-195); Globulin 2.1 gm/dL (2.2-3.7); Glomerular Filtration Rate 70; Glucose 93 mg/dL (70-105)
[2023-05-23 21:25] LABS: Appearance,Urine CLEAR (Clear); Bilirubin,Urine Negative (Negative); Color,Urine YELLOW; Culture Indicated,Urine No; Glucose,Urine (UA) Negative (Negative); Ketones,Urine Negative (Negative); Leukocyte Esterase,Urine Negative /uL (Negative); Nitrate,Urine Negative (Negative); Protein,Urine Negative (Negative); Specific Gravity,Urine 1.009 (1.000-1.035); Urine Blood Negative (Negative); Urobilinogen,Urine Negative
[2023-05-23 21:33] LABS: Amphetamine Screen,Urine None detected; Barbiturate Screen,Urine None detected; Benzodiazepines Screen,Urine None detected; Cannabinoid Screen,Urine None detected; Cocaine Screen,Urine None detected; Opiate Screen,Urine Suspect Positive; Oxycodone, Urine Screen None detected; Phencyclidine Screen,Urine None detected
[2023-05-23] MEDS ORDERED: ONDANSETRON 4 MG/2 ML VIAL IV PRN (23:44)
[2023-05-23] MEDS ORDERED: KETOROLAC 30 MG/ML VIAL IV PRN (23:49)
[2023-05-24] MEDS: 0.9 % SODIUM CHLORIDE 10 ML SYRINGE IV SCH ×5 (05:00→22:17)
[2023-05-24] MEDS ORDERED: KETOROLAC 15 MG/ML VIAL IV PRN (07:30)
[2023-05-24] MEDS ORDERED: ACETAMINOPHEN 500 MG TABLET PO PRN (08:16)
[2023-05-24] MEDS ORDERED: tiZANidine 4 MG TABLET PO PRN (08:18)
[2023-05-24] MEDS ORDERED: ENOXAPARIN 40 MG/0.4 ML SYRINGE SQ SCH (09:00)
[2023-05-24] MEDS: BISOPROLOL 5 MG TABLET PO SCH (09:36)
[2023-05-24] MEDS: HYDROcodone/APAP 5/325MG TABLET PO PRN ×2 (09:37→22:12)
[2023-05-24] MEDS: GABAPENTIN 300 MG CAPSULE PO SCH ×2 (09:37→22:16)
[2023-05-24] MEDS: lamoTRIgine 100 MG TABLET PO SCH ×2 (09:38→22:16)
[2023-05-24] MEDS: lamoTRIgine 25 MG TABLET PO SCH ×2 (09:38→22:16)
[2023-05-24] MEDS: FUROSEMIDE 20 MG TABLET PO SCH (09:38)
[2023-05-24] MEDS: DOCUSATE SODIUM 100 MG CAPSULE PO SCH ×2 (09:43→22:16)
[2023-05-24] MEDS: WARFARIN 5 MG TABLET PO SCH (17:10)
[2023-05-24] MEDS: ENOXAPARIN 60 MG/0.6 ML SYRINGE SQ SCH (18:54)
[2023-05-24] MEDS ORDERED: ENOXAPARIN 60 MG/0.6 ML SYRINGE SQ SCH (21:00)
[2023-05-24] MEDS: SENNOSIDES 1 TABLET PO SCH (22:14)
[2023-05-25] MEDS: 0.9 % SODIUM CHLORIDE 10 ML SYRINGE IV SCH ×3 (05:44→20:39)
[2023-05-25] MEDS: ENOXAPARIN 60 MG/0.6 ML SYRINGE SQ SCH ×3 (05:44→20:54)
[2023-05-25 07:06] LABS: INR 1.4 (0.9-1.1); Prothrombin Time 17.3 sec (11.9-14.5)
[2023-05-25] MEDS: lamoTRIgine 100 MG TABLET PO SCH ×2 (09:55→20:39)
[2023-05-25] MEDS: FUROSEMIDE 20 MG TABLET PO SCH (09:55)
[2023-05-25] MEDS: DOCUSATE SODIUM 100 MG CAPSULE PO SCH ×2 (09:55→20:38)
[2023-05-25] MEDS: lamoTRIgine 25 MG TABLET PO SCH ×2 (09:56→20:38)
[2023-05-25] MEDS: GABAPENTIN 300 MG CAPSULE PO SCH ×2 (09:57→20:38)
[2023-05-25] MEDS: BISOPROLOL 5 MG TABLET PO SCH ×2 (10:03→20:38)
[2023-05-25] MEDS: WARFARIN 5 MG TABLET PO SCH (20:17)
[2023-05-25] MEDS: SENNOSIDES 1 TABLET PO SCH (20:38)
[2023-05-25] MEDS: BACLOFEN 10 MG TABLET PO PRN (21:03)
[2023-05-26] MEDS: ENOXAPARIN 60 MG/0.6 ML SYRINGE SQ SCH ×2 (06:05→17:19)
[2023-05-26] MEDS: 0.9 % SODIUM CHLORIDE 10 ML SYRINGE IV SCH ×3 (06:05→21:51)
[2023-05-26 07:07] LABS: INR 1.4 (0.9-1.1); Prothrombin Time 17.5 sec (11.9-14.5)
[2023-05-26] MEDS: HYDROcodone/APAP 5/325MG TABLET PO PRN ×2 (07:50→19:04)
[2023-05-26] MEDS: GABAPENTIN 300 MG CAPSULE PO SCH ×2 (09:16→21:51)
[2023-05-26] MEDS: DOCUSATE SODIUM 100 MG CAPSULE PO SCH ×2 (09:16→21:34)
[2023-05-26] MEDS: lamoTRIgine 25 MG TABLET PO SCH ×2 (09:16→21:51)
[2023-05-26] MEDS: lamoTRIgine 100 MG TABLET PO SCH ×2 (09:16→21:51)
[2023-05-26] MEDS: FUROSEMIDE 20 MG TABLET PO SCH (09:16)
[2023-05-26] MEDS: WARFARIN 5 MG TABLET PO SCH (14:50)
[2023-05-26] MEDS: BACLOFEN 10 MG TABLET PO PRN (19:03)
[2023-05-26] MEDS: SENNOSIDES 1 TABLET PO SCH (21:34)
[2023-05-26] MEDS: BISOPROLOL 5 MG TABLET PO SCH (21:51)
[2023-05-27] MEDS: 0.9 % SODIUM CHLORIDE 10 ML SYRINGE IV SCH (05:10)
[2023-05-27] MEDS: ENOXAPARIN 60 MG/0.6 ML SYRINGE SQ SCH (05:10)
[2023-05-27] MEDS: HYDROcodone/APAP 5/325MG TABLET PO PRN (06:14)
[2023-05-27 06:45] LABS: INR 1.1 (0.9-1.1); Prothrombin Time 15.1 sec (11.9-14.5)
[2023-05-27 07:09] VITALS: TEMP 97.7; O2SAT 99
[2023-05-27] MEDS: lamoTRIgine 100 MG TABLET PO SCH (08:42)
[2023-05-27] MEDS: lamoTRIgine 25 MG TABLET PO SCH (08:42)
[2023-05-27] MEDS: FUROSEMIDE 20 MG TABLET PO SCH (08:42)
[2023-05-27] MEDS: GABAPENTIN 300 MG CAPSULE PO SCH (08:45)
[2023-05-27] MEDS: DOCUSATE SODIUM 100 MG CAPSULE PO SCH (08:46)
== END 2023-05-27 12:58 | DRG 70 ==
LOC: ED 19:05 → MEDSUR 05-24 01:22
PROVIDERS: ADMIT Internal Medicine; ATTEND Internal Medicine

== ENCOUNTER 2023-09-25 20:48 | Inpatient (IN) ==
[2023-09-25 22:21] LABS: Basophils # (Auto) 0.02 K/mcL (0.00-0.30); Basophils % (Auto) 0.2 % (0.0-2.0); Eosinophils # (Auto) 0.06 K/mcL (0.00-0.70); Eosinophils % (Auto) 0.5 % (0.0-7.0); Hematocrit 42.6 % (40.1-51.0); Hemoglobin 13.9 g/dL (13.7-17.5); Lymphocytes # (Auto) 2.19 K/mcL (1.50-4.80); Mean Cell Volume 95.5 fL (80.0-100.0); Mean Corpuscular HGB Conc 32.6 g/dL (31.0-36.0); Mean Platelet Volume 10.6 fL (8.8-12.5); Monocytes # (Auto) 0.51 K/mcL (0.10-0.90); Monocytes % (Auto) 4.2 % (1.0-12.0); Neutrophils % (Auto) 76.8 % (38.0-78.0); Platelet Count 156 K/mcL (140-440); RBC 4.46 M/mcL (4.63-6.08); Red Cell Distribution Width 12.7 % (11.5-14.5); WBC 12.2 K/mcL (4.5-11.0)
[2023-09-25 22:41] LABS: ALT/SGPT 7 U/L (<40); AST/SGOT 12 U/L (<40); Albumin 3.7 gm/dL (3.2-5.2); Albumin/Globulin Ratio 1.8 (1.0-2.3); Alkaline Phosphatase 95 U/L (39-117); Bilirubin,Total 0.4 mg/dL (0.1-1.0); Blood Urea Nitrogen 19 mg/dL (8-23); Calcium 8.9 mg/dL (8.6-10.4); Carbon Dioxide 25 mmol/L (22-30); Chloride 104 mmol/L (96-108); Globulin 2.1 gm/dL (2.2-3.7); Glomerular Filtration Rate 62; Glucose 106 mg/dL (70-105)
[2023-09-25 23:05] LABS: Appearance,Urine TURBID (Clear); Bilirubin,Urine Negative (Negative); Color,Urine YELLOW; Culture Indicated,Urine Yes; Glucose,Urine (UA) Negative (Negative); Ketones,Urine Negative (Negative); Leukocyte Esterase,Urine 500 /uL (Negative); Nitrate,Urine POS (Negative); Protein,Urine 100 mg/dL (Negative); Urine RBC 49 /hpf (0-3); Urine Squamous Epithelial Cell 0 /hpf (0-4); Urine WBC > 182 /hpf (0-4); Urobilinogen,Urine Negative
[2023-09-26 00:26] LABS: Amphetamine Screen,Urine None detected; Barbiturate Screen,Urine None detected; Benzodiazepines Screen,Urine None detected; Cannabinoid Screen,Urine None detected; Cocaine Screen,Urine None detected; Opiate Screen,Urine None detected; Oxycodone, Urine Screen None detected; Phencyclidine Screen,Urine None detected
[2023-09-26] MEDS ORDERED: VANCOMYCIN PER PHARMACY IV SCH (09:15)
[2023-09-26] MEDS ORDERED: ERTAPENEM 1 GM in 0.9 % SODIUM CHLORIDE 50 ML IV ONE (10:00)
[2023-09-26] MEDS ORDERED: oxyCODONE IR 5 MG TABLET PO PRN (13:56)
[2023-09-26] MEDS ORDERED: ONDANSETRON 4 MG/2 ML VIAL IV PRN (13:56)
[2023-09-26] MEDS ORDERED: ACETAMINOPHEN W/CODEINE #3 1 TABLET PO PRN (13:56)
[2023-09-26] MEDS ORDERED: HYDROmorphone 0.5 MG/0.5 ML SYRINGE IV PRN (13:56)
[2023-09-26] MEDS: VANCOMYCIN 1,000 MG in 0.9 % SODIUM CHLORIDE 250 ML IV SCH ×2 (14:58→21:58)
[2023-09-26] MEDS: DOCUSATE SODIUM 100 MG CAPSULE PO SCH ×2 (15:03→21:10)
[2023-09-26] MEDS: ENOXAPARIN 40 MG/0.4 ML SYRINGE SQ SCH (15:04)
[2023-09-26] MEDS: 0.9 % SODIUM CHLORIDE 10 ML SYRINGE IV SCH ×2 (15:04→21:59)
[2023-09-26] MEDS ORDERED: HYDROcodone/APAP (PP) 5/325MG TABLET (#4) PO PRN (18:10)
[2023-09-26] MEDS: lamoTRIgine 25 MG TABLET PO SCH (21:05)
[2023-09-26] MEDS: GABAPENTIN 300 MG CAPSULE PO SCH (21:05)
[2023-09-26] MEDS: lamoTRIgine 100 MG TABLET PO SCH (21:05)
[2023-09-26] MEDS: tiZANidine 4 MG TABLET PO PRN (21:05)
[2023-09-26] MEDS: SENNOSIDES 1 TABLET PO SCH (21:10)
[2023-09-27] MEDS: BACLOFEN 10 MG TABLET PO PRN ×2 (02:57→21:22)
[2023-09-27] MEDS: tiZANidine 4 MG TABLET PO PRN ×2 (02:57→21:21)
[2023-09-27] MEDS: 0.9 % SODIUM CHLORIDE 10 ML SYRINGE IV SCH ×3 (05:21→21:23)
[2023-09-27 06:59] LABS: Basophils # (Auto) 0.03 K/mcL (0.00-0.30); Basophils % (Auto) 0.3 % (0.0-2.0); Eosinophils # (Auto) 0.17 K/mcL (0.00-0.70); Eosinophils % (Auto) 1.9 % (0.0-7.0); Hematocrit 39.5 % (40.1-51.0); Hemoglobin 12.8 g/dL (13.7-17.5); Lymphocytes # (Auto) 4.14 K/mcL (1.50-4.80); Lymphocytes % (Auto) 47.4 % (15.5-49.0); Mean Cell Volume 95.9 fL (80.0-100.0); Mean Corpuscular HGB Conc 32.4 g/dL (31.0-36.0); Mean Platelet Volume 10.4 fL (8.8-12.5); Monocytes # (Auto) 0.46 K/mcL (0.10-0.90); Monocytes % (Auto) 5.3 % (1.0-12.0); Neutrophils % (Auto) 44.8 % (38.0-78.0); Platelet Count 171 K/mcL (140-440); RBC 4.12 M/mcL (4.63-6.08); Red Cell Distribution Width 12.6 % (11.5-14.5); WBC 8.7 K/mcL (4.5-11.0)
[2023-09-27 07:36] LABS: ALT/SGPT 9 U/L (<40); AST/SGOT 13 U/L (<40); Albumin 3.3 gm/dL (3.2-5.2); Albumin/Globulin Ratio 1.6 (1.0-2.3); Alkaline Phosphatase 86 U/L (39-117); Bilirubin,Total 0.4 mg/dL (0.1-1.0); Blood Urea Nitrogen 18 mg/dL (8-23); Carbon Dioxide 23 mmol/L (22-30); Chloride 105 mmol/L (96-108); Glomerular Filtration Rate 79; Glucose 92 mg/dL (70-105)
[2023-09-27] MEDS: CALCIUM CARBONATE 500 MG TAB.CHEW CHEWED SCH (08:56)
[2023-09-27] MEDS: BISOPROLOL 5 MG TABLET PO SCH ×2 (08:56→14:09)
[2023-09-27] MEDS: DOCUSATE SODIUM 100 MG CAPSULE PO SCH ×2 (08:57→21:21)
[2023-09-27] MEDS: lamoTRIgine 25 MG TABLET PO SCH ×2 (08:57→21:21)
[2023-09-27] MEDS: VITAMIN C PO SCH (08:57)
[2023-09-27] MEDS: lamoTRIgine 100 MG TABLET PO SCH ×2 (08:57→21:21)
[2023-09-27] MEDS: GABAPENTIN 300 MG CAPSULE PO SCH ×2 (08:57→21:22)
[2023-09-27] MEDS: SERTRALINE 50 MG TABLET PO SCH (08:58)
[2023-09-27] MEDS ORDERED: rOPINIRole 0.25 MG TABLET PO SCH (09:00)
[2023-09-27] MEDS ORDERED: SILVER SULFADIAZINE CREAM.TOP 25GM TOPICAL SCH (09:00)
[2023-09-27] MEDS: ENOXAPARIN 40 MG/0.4 ML SYRINGE SQ SCH (09:06)
[2023-09-27] MEDS: FUROSEMIDE 20 MG TABLET PO SCH (09:09)
[2023-09-27] MEDS: ERTAPENEM 1 GM in 0.9 % SODIUM CHLORIDE 50 ML IV SCH (09:12)
[2023-09-27] MEDS ORDERED: FLUZONE HD QS2023-24/PF 240 MCG/0.7 ML SYRINGE IM ONE (10:00)
[2023-09-27] MEDS: VANCOMYCIN 1,000 MG in 0.9 % SODIUM CHLORIDE 250 ML IV SCH ×2 (10:08→21:22)
[2023-09-27] MEDS ORDERED: 0.9 % SODIUM CHLORIDE 1,000 ML IV ONE (15:07)
[2023-09-27] MEDS: rOPINIRole 1 MG TABLET PO SCH (21:21)
[2023-09-27] MEDS: SENNOSIDES 1 TABLET PO SCH (21:23)
[2023-09-28] MEDS: tiZANidine 4 MG TABLET PO PRN ×2 (03:04→21:22)
[2023-09-28] MEDS: 0.9 % SODIUM CHLORIDE 10 ML SYRINGE IV SCH ×3 (06:05→21:30)
[2023-09-28] MEDS: ERTAPENEM 1 GM in 0.9 % SODIUM CHLORIDE 50 ML IV SCH (08:33)
[2023-09-28] MEDS: BACLOFEN 10 MG TABLET PO PRN (08:44)
[2023-09-28] MEDS: rOPINIRole 1 MG TABLET PO SCH ×4 (08:44→21:29)
[2023-09-28] MEDS: VITAMIN C PO SCH (08:44)
[2023-09-28] MEDS: lamoTRIgine 25 MG TABLET PO SCH ×2 (08:44→21:18)
[2023-09-28] MEDS: BISOPROLOL 5 MG TABLET PO SCH (08:44)
[2023-09-28] MEDS: SERTRALINE 50 MG TABLET PO SCH (08:45)
[2023-09-28] MEDS: DOCUSATE SODIUM 100 MG CAPSULE PO SCH ×2 (08:45→21:17)
[2023-09-28] MEDS: CALCIUM CARBONATE 500 MG TAB.CHEW CHEWED SCH (08:45)
[2023-09-28] MEDS: lamoTRIgine 100 MG TABLET PO SCH ×2 (08:45→21:18)
[2023-09-28] MEDS: GABAPENTIN 300 MG CAPSULE PO SCH ×2 (08:45→21:17)
[2023-09-28] MEDS: ENOXAPARIN 40 MG/0.4 ML SYRINGE SQ SCH (08:46)
[2023-09-28] MEDS: FUROSEMIDE 20 MG TABLET PO SCH (08:46)
[2023-09-28] MEDS ORDERED: FLUZONE HD QS2023-24/PF 240 MCG/0.7 ML SYRINGE IM ONE (09:00)
[2023-09-28 10:52] LABS: INR 1.4 (0.9-1.1)
[2023-09-28] MEDS: VANCOMYCIN 1,000 MG in 0.9 % SODIUM CHLORIDE 250 ML IV SCH (11:05)
[2023-09-28] MEDS ORDERED: WARFARIN 3 MG TABLET PO ONE (14:00)
[2023-09-28] MEDS: SENNOSIDES 1 TABLET PO SCH (21:17)
[2023-09-28] MEDS: HYDROcodone/APAP 5/325MG TABLET PO PRN (21:18)
[2023-09-29] MEDS: rOPINIRole 1 MG TABLET PO SCH ×2 (02:09→09:02)
[2023-09-29] MEDS: tiZANidine 4 MG TABLET PO PRN (03:38)
[2023-09-29] MEDS: HYDROcodone/APAP 5/325MG TABLET PO PRN (03:38)
[2023-09-29] MEDS: 0.9 % SODIUM CHLORIDE 10 ML SYRINGE IV SCH (05:53)
[2023-09-29 06:56] LABS: INR 1.3 (0.9-1.1)
[2023-09-29 07:36] VITALS: O2SAT 99
[2023-09-29] MEDS: FUROSEMIDE 20 MG TABLET PO SCH (09:01)
[2023-09-29] MEDS: BISOPROLOL 5 MG TABLET PO SCH (09:02)
[2023-09-29] MEDS: VITAMIN C PO SCH (09:02)
[2023-09-29] MEDS: lamoTRIgine 100 MG TABLET PO SCH (09:04)
[2023-09-29] MEDS: SERTRALINE 50 MG TABLET PO SCH (09:04)
[2023-09-29] MEDS: GABAPENTIN 300 MG CAPSULE PO SCH (09:04)
[2023-09-29] MEDS: CALCIUM CARBONATE 500 MG TAB.CHEW CHEWED SCH (09:04)
[2023-09-29] MEDS: lamoTRIgine 25 MG TABLET PO SCH (09:05)
[2023-09-29] MEDS: ENOXAPARIN 40 MG/0.4 ML SYRINGE SQ SCH (09:05)
[2023-09-29] MEDS: ERTAPENEM 1 GM in 0.9 % SODIUM CHLORIDE 50 ML IV SCH (09:05)
[2023-09-29] MEDS: DOCUSATE SODIUM 100 MG CAPSULE PO SCH (09:13)
[2023-09-29] MEDS ORDERED: WARFARIN 3 MG TABLET PO SCH (14:00)
[2023-09-29 14:30] VITALS: TEMP 97.2
== END 2023-09-29 13:43 | DRG 689 ==
LOC: ED 20:48 → MEDSUR 09-26 12:02
PROVIDERS: ADMIT Internal Medicine; ATTEND Internal Medicine